=== PATIENT | male | born 1945 | race Caucasian/White ===

== ENCOUNTER 2017-01-21 17:05 | Inpatient (IN) | payer OTHER ==
[~2017-01-21] VITALS: Ht 165.1 cm; Wt 73.9 kg
[~2017-01-21 17:05] MED LIST: FEBU40TA PO; FEXO1TAB49 PO; FLM4 PO; OMEP20TA PO; PRS5 PO
[2017-01-21] MEDS ORDERED: SODIUM CHLORIDE 0.9% 1000ML 1,000 ML IV STA ×2 (18:25→20:24)
[2017-01-21 18:42] LABS: BASO % 0.1 %; BASO ABS # 0.01 K/uL (0-0.2); COMPLETE YES; EOS % 0.3 %; HEMATOCRIT 48.8 % (42-52); IG% 0.3 %; LYMPH % 7.1 %; LYMPH ABS # 1.05 K/uL (1.2-3.4); MEAN CELL VOLUME 93.8 fL (80-100); MEAN CORPUSCULAR HEMOGLOBIN 34.4 pg (25-34); MEAN CORPUSCULAR HGB CONC 36.7 g/dl (32-36); MEAN PLATELET VOLUME 9.3 fL (7.4-10.4); NEUT % 84.2 %; PLATELET COUNT 149 K/uL (130-400); WHITE BLOOD COUNT 14.73 K/uL (4.8-10.8)
[2017-01-21 18:46] LABS: URINE APPEARANCE CLEAR (CLEAR); URINE BILIRUBIN NEG (NEG); URINE COLOR YELLOW; URINE NITRITE NEG (NEG); URINE SPECIFIC GRAVITY 1.016 (1.000-1.030); UROBILINOGEN NEG (NEG); ZZUR CULT IF INDIC CLEAN CATCH NO
[2017-01-21 18:48] LABS: MANUAL MICROSCOPIC REQUIRED? NO; REVIEW REQ? NO
[2017-01-21 19:00] LABS: BUN/CREATININE RATIO 13.1 (10-20); CALCIUM 9.2 mg/dl (8.5-10.1); CREATININE 1.3 mg/dl (0.60-1.40); POTASSIUM 3.8 mmol/L (3.5-5.1)
--- NOTE | 2017-01-21 19:12 | DIAGNOSTIC IMAGING REPORT ---
CHEST ONE VIEW PORTABLE CLINICAL HISTORY: Abdominal pain. Fever. Weakness COMPARISON STUDY: Chest radiograph September 22, 2016 per FINDINGS: Lung volumes are diminished. There is no pneumothorax or pleural effusion. Cardiomediastinal silhouette is stable. There is no evidence of pulmonary edema edema. There is mild left basilar opacity. IMPRESSION: 1. Diminished lung volumes. 2. Mild left basilar opacity. Atelectasis is favored over pneumonia. Electronically signed by: Puneet Curtis M.D. 01/21/2017 7:11 PM Dictated Date/Time: 01/21/2017 7:10 PM
[2017-01-21] MEDS ORDERED: ERGO500037 PO (19:18)
--- NOTE | 2017-01-21 19:55 | DIAGNOSTIC IMAGING REPORT ---
CT OF THE ABDOMEN AND PELVIS WITHOUT CONTRAST CLINICAL HISTORY: Diffuse abdominal pain. Prior nephrectomy. Hernia. COMPARISON STUDY: CT of the abdomen and pelvis January 25, 2016. TECHNIQUE: Axial images of the abdomen and pelvis were obtained without IV contrast. Images were reviewed in the axial, sagittal, and coronal planes. FINDINGS: There is fatty infiltration of the liver. Evaluation of the abdomen and pelvis is suboptimal on this unenhanced exam. Unenhanced images of the spleen, adrenal glands are unremarkable with the exception of a 1 cm right adrenal nodule. In retrospect, a small nodule may have been present on prior exam but this has increased in size. There is no evidence for a bowel obstruction. Note is made of colonic diverticulosis. There is wall thickening with moderate pericolonic infiltration of the proximal descending colon. There is no free air or abscess. The appearance of the right nephrectomy bed is unchanged. No suspicious osseous lesions are present. No lymphadenopathy is present. A 1.1 cm lesion within the mid to lower pole the of left kidney is suboptimally assessed on this unenhanced exam but shown to represent a cyst on prior study. IMPRESSION: 1. Acute diverticulitis of the proximal descending colon. Moderate inflammation. No free air or abscess. 2. 1 cm right adrenal nodule. In retrospect, a small nodule may have been present on prior CT but this nodule has increased in size. This nodule is indeterminate. A follow-up CT of the abdomen in 6 months is recommended. 3. Status post right nephrectomy. No change in appearance of the nephrectomy bed. Electronically signed by: Puneet Curtis M.D. 01/21/2017 7:54 PM Dictated Date/Time: 01/21/2017 7:34 PM
[2017-01-21] MEDS ORDERED: METRONIDAZOLE 500MG / 100ML NSS IV STA (20:22)
[2017-01-21] MEDS ORDERED: CIPROFLOXACIN 400MG / 200ML D5W IV STA (20:22)
[2017-01-21] MEDS ORDERED: HYDROmorphone INJ 0.5 MG/0.5 ML SYR IV STA (20:24)
[2017-01-21] MEDS ORDERED: ONDANSETRON INJ 2 MG/ML 2 ML VIAL IV STA (20:24)
[2017-01-21] MEDS ORDERED: ONDANSETRON INJ 2 MG/ML 2 ML VIAL IV PRN (21:00)
[2017-01-21] MEDS ORDERED: FLUT0.15 INH (21:06)
--- NOTE | 2017-01-21 21:43 | History and Physical ---
History & Physical Date & Time of Service: Jan 21, 2017 at 21:11 Chief Complaint: Fever,Weakness Primary Care Physician: Staci Cai M.D. History of Present Illness Source: patient This is a 71 y/o male with PMHx of diverticulitis s/p partial colectomy, renal CA s/p R nephrectomy, CKD stage 3 and other problems as outlined below who presents to the ED c/o upper respiratory sxs for 6 weeks. Pt reports that for the past 6 weeks he has been fatigued with low grade fevers (T max 101*F), headaches, congestion and cough productive of clear sputum. He was seen by his PCP multiple times and has completed a course of Augmentin, Levaquin and 2 different courses of Prednisone with no resolution of his sxs. Yesterday, patient developed abdominal pain which he describes as 5/10 upper abdominal "soreness". BM have been normal. Pt has a history of diverticulitis s/p partial colectomy in 1998. Last colonoscopy from 2013 + diverticulosis throughout colon. Pt denies chest pain, SOB, wheezing, N/V, constipation, diarrhea, hematochezia, melena, or bladder issues, LE edema ,calf pain, lightheadedness/ dizziness. In the ED, vitals are stable. Pt is afebrile with leukocytosis >14k. CT abd/pelvis + acute diverticulitis of the proximal descending colon. CXR mild L basilar opacity favoring atelectasis. Pt received IVF, Cipro/Flagyl and Dilaudid in the ED. He will be admitted for further evaluation and treatment. Past Medical/Surgical History Medical Problems: (1) BPH (benign prostatic hypertrophy) Status: Chronic (2) CKD (chronic kidney disease) stage 3, GFR 30-59 ml/min Status: Chronic (3) GERD (gastroesophageal reflux disease) Status: Chronic (4) History of nephrectomy, unilateral Permanent Comment: R nephrectomy in 1999 secondary to renal CA Status: Chronic (5) Renal cell carcinoma Status: Resolved Surgical Problems: (1) History of inguinal hernia repair Permanent Comment: open repair; 2014 Status: Resolved (2) History of partial colectomy Permanent Comment: 1998 Status: Resolved Family History Cancer Heart Hypertension Social History Smoking Status: Former Smoker (quit 1969) Alcohol Use: none Drug Use: none Marital Status: Housing status: lives with family Occupational Status: retired Multi-Drug Resistant Organisms History of MDRO: No Allergies Coded Allergies: Colchicine (Unverified Adverse Reaction, Intermediate, DIARRHEA, 01/21/17) Cauliflower (Unverified Adverse Reaction, Unknown, GIVES PT GOUT, 01/21/17) Home Medications Scheduled Ergocalciferol (Vitamin D 18714 Unit), 50,000 UNIT PO WK Febuxostat (Uloric), 40 MG PO QAM Fexofenadine Hcl (Jigna Allergy), 180 MG PO QAM Finasteride (Finasteride), 5 MG PO QAM Fluticasone Propionate (Nasal) (Flonase Allergy Relief), 2 SPRAYS INH DAILY Omeprazole (Omeprazole), 20 MG PO QAM Tamsulosin HCl (Tamsulosin HCl), 0.4 MG PO QAM Review of Systems Constitutional: + chills, + fatigue, + fever, + weakness, No sweats Eyes: No worsening of vision ENT: + nasal symptoms, No hearing loss Respiratory: + cough, + sputum, No shortness of breath, No wheezing Cardiovascular: No chest pain, No claudication, No edema, No palpitations Abdomen: + pain, No GI bleeding, No constipation, No diarrhea, No nausea, No vomiting Musculoskeletal: No calf pain, No swelling Genitourinary - Male: No dysuria Neurologic: No weakness Psychiatric: No depression symptoms Endocrine: + fatigue Hematologic / Lymphatic: No abnormal bleeding/bruising Integumentary: No new/changing skin lesions Physical Exam Vital Signs Date Time Temp Pulse Resp B/P Pulse Ox O2 Delivery O2 Flow Rate FiO2 01/21/17 21:06 89 18 126/92 94 Room Air 01/21/17 20:44 94 20 151/104 94 Room Air 01/21/17 19:15 89 20 121/100 95 Room Air 01/21/17 19:02 91 01/21/17 18:39 90 22 131/100 94 Room Air 01/21/17 17:30 37.4 109 18 134/89 96 Room Air General Appearance: WD/WN, no apparent distress, + pertinent finding (Pt is laying in bed with at bedside ) Head: normocephalic, atraumatic Eyes: normal inspection ENT: hearing grossly normal Neck: supple Respiratory/Chest: chest non-tender, lungs clear, normal breath sounds, no respiratory distress Cardiovascular: regular rate, rhythm, no edema, no murmur Abdomen/GI: normal bowel sounds, soft, + tenderness (upper>lower) Back: normal inspection Extremities/Musculoskelatal: normal inspection, no calf tenderness, no pedal edema Neurologic/Psych: alert, normal mood/affect, oriented x 3 Skin: normal color, warm/dry Diagnostics Laboratory Results Results Past 24 Hours Test 01/21/17 18:35 01/21/17 19:00 Range/Units White Blood Count 14.73 4.8-10.8 K/uL Red Blood Count 5.20 4.7-6.1 M/uL Hemoglobin 17.9 14.0-18.0 g/dL Hematocrit 48.8 42-52 % Mean Corpuscular Volume 93.8 80-100 fL Mean Corpuscular Hemoglobin 34.4 25-34 pg Mean Corpuscular Hemoglobin Concent 36.7 32-36 g/dl Platelet Count 149 130-400 K/uL Mean Platelet Volume 9.3 7.4-10.4 fL Neutrophils (%) (Auto) 84.2 % Lymphocytes (%) (Auto) 7.1 % Monocytes (%) (Auto) 8.0 % Eosinophils (%) (Auto) 0.3 % Basophils (%) (Auto) 0.1 % Neutrophils # (Auto) 12.40 1.4-6.5 K/uL Lymphocytes # (Auto) 1.05 1.2-3.4 K/uL Monocytes # (Auto) 1.18 0.11-0.59 K/uL Eosinophils # (Auto) 0.05 0-0.5 K/uL Basophils # (Auto) 0.01 0-0.2 K/uL RDW Standard Deviation 44.1 36.4-46.3 fL RDW Coefficient of Variation 12.8 11.5-14.5 % Immature Granulocyte % (Auto) 0.3 % Immature Granulocyte # (Auto) 0.04 0.00-0.02 K/uL Urine Color YELLOW Urine Appearance CLEAR CLEAR Urine pH 5.0 4.5-7.5 Urine Specific [place] 1.016 1.000-1.030 Urine Protein NEG NEG Urine Glucose (UA) NEG NEG Urine Ketones NEG NEG Urine Occult Blood NEG NEG Urine Nitrite NEG NEG Urine Bilirubin NEG NEG Urine Urobilinogen NEG NEG Urine Leukocyte Esterase NEG NEG Sodium Level 135 136-145 mmol/L Potassium Level 3.8 3.5-5.1 mmol/L Chloride Level 99 98-107 mmol/L Carbon Dioxide Level 30 21-32 mmol/L Anion Gap 6.0 3-11 mmol/L Blood Urea Nitrogen 17 7-18 mg/dl Creatinine 1.30 0.60-1.40 mg/dl Est Creatinine Clear Calc Drug Dose 47.6 ml/min Estimated GFR () 62.7 Estimated GFR (Non- 54.1 BUN/Creatinine Ratio 13.1 10-20 Random Glucose 120 70-99 mg/dl Calcium Level 9.2 8.5-10.1 mg/dl Total Bilirubin 1.5 0.2-1 mg/dl Direct Bilirubin 0.3 0-0.2 mg/dl Aspartate Amino Transf (AST/SGOT) 11 15-37 U/L Alanine Aminotransferase (ALT/SGPT) 29 12-78 U/L Alkaline Phosphatase 54 45-117 U/L Total Protein 8.2 6.4-8.2 gm/dl Albumin 3.7 3.4-5.0 gm/dl Lipase 192 73-393 U/L Influenza Type A Antigen Neg for Influ A NEG Influenza Type B Antigen Neg for Influ B NEG Diagnostic Radiology CT ABD/PELVIS IMPRESSION: 1. Acute diverticulitis of the proximal descending colon. Moderate inflammation. No free air or abscess. 2. 1 cm right adrenal nodule. In retrospect, a small nodule may have been present on prior CT but this nodule has increased in size. This nodule is indeterminate. A follow-up CT of the abdomen in 6 months is recommended. 3. Status post right nephrectomy. No change in appearance of the nephrectomy bed. CXR IMPRESSION: 1. Diminished lung volumes. 2. Mild left basilar opacity. Atelectasis is favored over pneumonia. Impression Assessment and Plan ACUTE DIVERTICULITIS -admit to med/surg -pt is afebrile with leukocytosis> 14k -CT abd/pelvis + acute diverticulitis of proximal descending colon -start IVF and Cipro/Flagyl -Keep NPO -consider GI consult if sxs fail to improve -monitor PERSISTENT COUGH ongoing for 6 weeks; failed outpatient treatment -CXR mild L basilar opacity favoring atelectasis -check flu PCR and sputum cx -cont IVF and IV abx -start Robitussin PRN and cont Flonase -monitor ADRENAL NODULE -CT abd/pelvis + 1 cm adrenal nodule -recommend f/u CT within 6 months HISTORY OF RENAL CELL CA -s/p R nephrectomy in 1999 CKD STAGE 3 -creatinine at baseline -continue to monitor and avoid nephrotoxic agents when able BPH -cont Flomax and Proscar GERD -cont PPI DVT PROPHYLAXIS -subq Lovenox CODE STATUS -FULL CODE per discussion with patient upon admission DISPO Pt seen in collaboration with Dr. Valdez. Please see her addendum for further details. Thanks! ATTENDING ADDENDUM Record reviewed. Patient interviewed and examined. I agree with the assessment and plan as stated. Care coordinated with Annette Cervantes PA-C. Please refer to her documentation for patient's history. Marta Valdez, DO Hospitalist Level of Care Med/Surg Resuscitation Status FULL RESUSCITATION VTE Prophylaxis VTE Risk Assessment Done? Y/N: Yes Risk Level: Moderate Given or contraindicated: Enoxaparin (Lovenox)SQ
[2017-01-21] MEDS ORDERED: GUAIFENESIN SUGAR FREE 100 MG/5 ML UDC PO PRN (21:45)
--- NOTE | 2017-01-21 23:11 | EMERGENCY ROOM VISIT NOTE ---
History Report prepared by Shelby: Patricia Wells Under the Supervision of: Dr. Eder Moyer M.D. First contact with patient: 18:25 Chief Complaint: FEVER Stated Complaint: FEVER,WEAKNESS History of Present Illness The patient is a 71 year old male who presents to the Emergency Room with complaints of worsening illness symptoms beginning 6 weeks prior to arrival. He has been experiencing generalized weakness and fatigue. The patient notes a low grade fever, headache, cough and abdominal pain. The patient's notes that today she called [facility] and discussed the patient's symptoms and was referred to the ED. He also notes that he has one kidney and has been experiencing trouble with urination. Patient is also prone to sepsis easily. Pt denies LOC, chills, diaphoresis, visual changes, neck pain, chest pain, breathing difficulties, nausea, vomiting, back pain, melena, hematochezia, numbness, lymphadenopathy, rash, or other complaints. Source of History: patient Onset: 6 weeks CRUISE COORDINATOR Position: other (global) Quality: other (illness symptoms ) Timing: worsening Associated Symptoms: + abdominal pain, + fatigue, + fevers, + headache, + urinary symptoms (trouble urinating), + weakness Review of Systems See HPI for pertinent positives and negatives. A total of ten systems were reviewed and were otherwise negative. Past Medical & Surgical Medical Problems: (1) BPH (benign prostatic hypertrophy) (2) CKD (chronic kidney disease) stage 3, GFR 30-59 ml/min (3) Diverticulitis (4) GERD (gastroesophageal reflux disease) (5) History of nephrectomy, unilateral (6) Renal cell carcinoma Surgical Problems: (1) History of inguinal hernia repair (2) History of partial colectomy Family History Cancer Heart Hypertension Social History Smoking Status: Never Smoker Alcohol Use: none Drug Use: none Marital Status: Housing Status: lives with significant other Occupation Status: retired Current/Historical Medications Scheduled Ergocalciferol (Vitamin D 52610 Unit), 50,000 UNIT PO WK Febuxostat (Uloric), 40 MG PO QAM Fexofenadine Hcl (Jigna Allergy), 180 MG PO QAM Finasteride (Finasteride), 5 MG PO QAM Fluticasone Propionate (Nasal) (Flonase Allergy Relief), 2 SPRAYS INH DAILY Omeprazole (Omeprazole), 20 MG PO QAM Tamsulosin HCl (Tamsulosin HCl), 0.4 MG PO QAM Allergies Coded Allergies: Colchicine (Unverified Adverse Reaction, Intermediate, DIARRHEA, 01/21/17) Cauliflower (Unverified Adverse Reaction, Unknown, GIVES PT GOUT, 01/21/17) Physical Exam Vital Signs Date Time Temp Pulse Resp B/P Pulse Ox O2 Delivery O2 Flow Rate FiO2 01/21/17 22:55 93 01/21/17 22:04 88 18 130/91 94 Room Air 01/21/17 21:06 89 18 126/92 94 Room Air 01/21/17 20:44 94 20 151/104 94 Room Air 01/21/17 19:15 89 20 121/100 95 Room Air 01/21/17 19:02 91 01/21/17 18:39 90 22 131/100 94 Room Air 01/21/17 17:30 37.4 109 18 134/89 96 Room Air Physical Exam GENERAL: Awake, alert, tired appearing, in no distress HENT: Normocephalic, atraumatic. Oropharynx unremarkable. EYES: Normal conjunctiva. Sclera non-icteric. NECK: Supple. No nuchal rigidity. FROM. No JVD. RESPIRATORY: Clear to auscultation. CARDIAC: Regular rate, normal rhythm. Extremities warm and well perfused. Pulses equal. ABDOMEN: Soft, non-distended. Diffuse tenderness to palpation. No rebound or guarding. No masses. RECTAL: Deferred. MUSCULOSKELETAL: Chest examination reveals no tenderness. The back is symmetrical on inspection without obvious abnormality. There is no CVA tenderness to palpation. No joint edema. LOWER EXTREMITIES: Calves are equal size bilaterally and non-tender. No edema. No discoloration. NEURO: Normal sensorium. No sensory or motor deficits noted. SKIN: No rash or jaundice noted. Medical Decision & Procedures ER Provider Diagnostic Interpretation: X ray results as stated below per my interpretation and radiologist interpretation. Other radiology results as stated below per my review and radiologist interpretation CHEST ONE VIEW PORTABLE CLINICAL HISTORY: Abdominal pain. Fever. Weakness COMPARISON STUDY: Chest radiograph September 22, 2016 per FINDINGS: Lung volumes are diminished. There is no pneumothorax or pleural effusion. Cardiomediastinal silhouette is stable. There is no evidence of pulmonary edema edema. There is mild left basilar opacity. IMPRESSION: 1. Diminished lung volumes. 2. Mild left basilar opacity. Atelectasis is favored over pneumonia. Electronically signed by: Puneet Curtis M.D. 01/21/2017 7:11 PM Dictated Date/Time: 01/21/2017 7:[address] OF THE ABDOMEN AND PELVIS WITHOUT CONTRAST CLINICAL HISTORY: Diffuse abdominal pain. Prior nephrectomy. Hernia. COMPARISON STUDY: CT of the abdomen and pelvis January 25, 2016. TECHNIQUE: Axial images of the abdomen and pelvis were obtained without IV contrast. Images were reviewed in the axial, sagittal, and coronal planes. FINDINGS: There is fatty infiltration of the liver. Evaluation of the abdomen and pelvis is suboptimal on this unenhanced exam. Unenhanced images of the spleen, adrenal glands are unremarkable with the exception of a 1 cm right adrenal nodule. In retrospect, a small nodule may have been present on prior exam but this has increased in size. There is no evidence for a bowel obstruction. Note is made of colonic diverticulosis. There is wall thickening with moderate pericolonic infiltration of the proximal descending colon. There is no free air or abscess. The appearance of the right nephrectomy bed is unchanged. No suspicious osseous lesions are present. No lymphadenopathy is present. A 1.1 cm lesion within the mid to lower pole the of left kidney is suboptimally assessed on this unenhanced exam but shown to represent a cyst on prior study. IMPRESSION: 1. Acute diverticulitis of the proximal descending colon. Moderate inflammation. No free air or abscess. 2. 1 cm right adrenal nodule. In retrospect, a small nodule may have been present on prior CT but this nodule has increased in size. This nodule is indeterminate. A follow-up CT of the abdomen in 6 months is recommended. 3. Status post right nephrectomy. No change in appearance of the nephrectomy bed. Electronically signed by: Puneet Curtis M.D. 01/21/2017 7:54 PM Dictated Date/Time: 01/21/2017 7:34 PM Laboratory Results 01/21/17 18:35 Red Blood Count 5.20, Mean Corpuscular Volume 93.8, Mean Corpuscular Hemoglobin 34.4, Mean Corpuscular Hemoglobin Concent 36.7, Mean Platelet Volume 9.3, Neutrophils (%) (Auto) 84.2, Lymphocytes (%) (Auto) 7.1, Monocytes (%) (Auto) 8.0, Eosinophils (%) (Auto) 0.3, Basophils (%) (Auto) 0.1, Neutrophils # (Auto) 12.40, Lymphocytes # (Auto) 1.05, Monocytes # (Auto) 1.18, Eosinophils # (Auto) 0.05, Basophils # (Auto) 0.01 01/21/17 18:35 Test 01/21/17 18:35 01/21/17 19:00 White Blood Count 14.73 K/uL (4.8-10.8) Red Blood Count 5.20 M/uL (4.7-6.1) Hemoglobin 17.9 g/dL (14.0-18.0) Hematocrit 48.8 % (42-52) Mean Corpuscular Volume 93.8 fL (80-100) Mean Corpuscular Hemoglobin 34.4 pg (25-34) Mean Corpuscular Hemoglobin Concent 36.7 g/dl (32-36) Platelet Count 149 K/uL (130-400) Mean Platelet Volume 9.3 fL (7.4-10.4) Neutrophils (%) (Auto) 84.2 % Lymphocytes (%) (Auto) 7.1 % Monocytes (%) (Auto) 8.0 % Eosinophils (%) (Auto) 0.3 % Basophils (%) (Auto) 0.1 % Neutrophils # (Auto) 12.40 K/uL (1.4-6.5) Lymphocytes # (Auto) 1.05 K/uL (1.2-3.4) Monocytes # (Auto) 1.18 K/uL (0.11-0.59) Eosinophils # (Auto) 0.05 K/uL (0-0.5) Basophils # (Auto) 0.01 K/uL (0-0.2) RDW Standard Deviation 44.1 fL (36.4-46.3) RDW Coefficient of Variation 12.8 % (11.5-14.5) Immature Granulocyte % (Auto) 0.3 % Immature Granulocyte # (Auto) 0.04 K/uL (0.00-0.02) Urine Color YELLOW Urine Appearance CLEAR (CLEAR) Urine pH 5.0 (4.5-7.5) Urine Specific [place] 1.016 (1.000-1.030) Urine Protein NEG (NEG) Urine Glucose (UA) NEG (NEG) Urine Ketones NEG (NEG) Urine Occult Blood NEG (NEG) Urine Nitrite NEG (NEG) Urine Bilirubin NEG (NEG) Urine Urobilinogen NEG (NEG) Urine Leukocyte Esterase NEG (NEG) Anion Gap 6.0 mmol/L (3-11) Est Creatinine Clear Calc Drug Dose 47.6 ml/min Estimated GFR () 62.7 Estimated GFR (Non- 54.1 BUN/Creatinine Ratio 13.1 (10-20) Calcium Level 9.2 mg/dl (8.5-10.1) Total Bilirubin 1.5 mg/dl (0.2-1) Direct Bilirubin 0.3 mg/dl (0-0.2) Aspartate Amino Transf (AST/SGOT) 11 U/L (15-37) Alanine Aminotransferase (ALT/SGPT) 29 U/L (12-78) Alkaline Phosphatase 54 U/L (45-117) Total Protein 8.2 gm/dl (6.4-8.2) Albumin 3.7 gm/dl (3.4-5.0) Lipase 192 U/L (73-393) Influenza Type A Antigen Neg for Influ A (NEG) Influenza Type B Antigen Neg for Influ B (NEG) Laboratory results reviewed by me Medications Administered Medications (Trade) Dose Ordered Sig/Jorge Route Start Time Stop Time Status Last Admin Dose Admin Sodium Chloride (Nss 1000ml) 1,000 ml @ 999 mls/hr Q1H1M STAT IV 01/21/17 18:25 01/21/17 19:25 DC 01/21/17 19:03 999 MLS/HR Ciprofloxacin/ Dextrose (Cipro / D5w) 400 mg NOW STAT IV 01/21/17 20:22 01/21/17 20:23 DC 01/21/17 20:34 400 MG Metronidazole (Flagyl / Nss) 500 mg NOW STAT IV 01/21/17 20:22 01/21/17 20:23 DC 01/21/17 20:34 500 MG Ondansetron HCl (Zofran Inj) 4 mg NOW STAT IV 01/21/17 20:24 01/21/17 20:25 DC 01/21/17 20:33 4 MG Hydromorphone HCl 0.5 mg 0.5 mg NOW STAT IV 01/21/17 20:24 01/21/17 20:25 DC 01/21/17 20:34 0.5 MG Sodium Chloride (Nss 1000ml) 1,000 ml @ 125 mls/hr Q8H STAT IV 01/21/17 20:24 01/22/17 04:23 01/21/17 20:34 125 MLS/HR ED Course 1824: Sodium Chloride 1,000 ml @ 999 mls/hr IV. 1904: The patient was evaluated in room C3. A complete history and physical exam was performed. 1906: Getting lab work from [facility] from Sunday visit. 2021: Flagyl / Nss 500 mg IV, Cipro/ D5W 400 mg IV, Sodium Chloride 1,000 ml @ 125 mls/hr IV, Dilaudid Inj 0.5 mg IV, Zofran Inj 4 mg IV. 2025: I discussed the patient's test results with the patient and his family. 2028: Discussed the patient's case with Dr. José Miguel Bahena. The patient will be evaluated for further treatment and disposition. Medical Decision Triage Nursing notes reviewed. The patient's presentation and history were concerning for fevers, weakness, and abdominal pain. Etiologies such as pneumonia, viral syndrome, diverticulitis, appendicitis, obstruction, inflammatory bowel disease, renal colic, PUD, biliary pathology, pancreatitis, mesenteric ischemia, aortic pathology, infections, genitourinary, UTI, perforated viscus, as well as others were entertained. The patient was evaluated. He was uncomfortable. He was hydrated. He was given nausea and pain medicine as above. He was feeling better. The patient had an increased white blood cell count and mild elevation of his bilirubin function. His chemistry panel, LFTs, urinalysis and flu testing were negative otherwise. CT imaging was concerning for diverticulitis. Chest x-ray was unremarkable. The patient was given Cipro and Flagyl. I discussed with him treatment options. Given the scenario additional treatment in the hospital was felt to be most appropriate. Consultation was made with internal medicine. The chart was completed utilizing [facility] voice recognition software. Grammatical errors, random word insertions, pronoun errors, and incomplete sentences are an occasional consequence of this system due to software limitations, ambient noise, and hardware issues. Any formal questions or concerns about the content, text, or information contained within the body of this dictation should be directly addressed to the physician for clarification. Consults Time Called: 2026 Consulting Physician: Dr. José Miguel Bahena Returned Call: 2028 Discussed the patient's case. The patient will be evaluated for further treatment and disposition. Impression Primary Impression: Diverticulitis Additional Impression: Fever Scribe Attestation The scribe's documentation has been prepared under my direction and personally reviewed by me in its entirety. I confirm that the note above accurately reflects all work, treatment, procedures, and medical decision making performed by me. Departure Information Dispostion Being Evaluated By Hospitalist Referrals Staci Cai M.D. (PCP) Problem Qualifiers
[2017-01-21 23:45] VITALS: BP 143/97; PULSE 80; TEMP 36.2; Ht 165.1 cm; Wt 73.9 kg
[2017-01-21 23:54] VITALS: BP 143/97; PULSE 80; TEMP 36.7; O2SAT 94
[2017-01-21] MEDS ORDERED: D5W AND NSS 1,000 ML IV SCH (23:59)
[2017-01-22] MEDS: ACETAMINOPHEN 325 MG TAB PO PRN ×3 (00:25→13:42)
[2017-01-22] MEDS ORDERED: HYDROmorphone INJ 0.5 MG/0.5 ML SYR IV ONE (00:27)
[2017-01-22] MEDS ORDERED: HYDROmorphone INJ 0.5 MG/0.5 ML SYR IV PRN (00:30)
[2017-01-22] MEDS: METRONIDAZOLE / NSS 500 MG in PREMIXED NSS 100 ML IV SCH ×3 (03:34→19:29)
[2017-01-22 05:14] LABS: INFLUENZA A PCR Neg for Influ A (NEG); INFLUENZA B PCR Neg for Influ B (NEG)
[2017-01-22 07:55] LABS: INR 1.1 (0.9-1.1); PROTHROMBIN TIME (PATIENT) 11.4 SECONDS (9.0-12.0)
[2017-01-22 07:57] LABS: HEMATOCRIT 40.1 % (42-52); MEAN CELL VOLUME 96.6 fL (80-100); MEAN CORPUSCULAR HEMOGLOBIN 34.7 pg (25-34); MEAN CORPUSCULAR HGB CONC 35.9 g/dl (32-36); MEAN PLATELET VOLUME 9.2 fL (7.4-10.4); PLATELET COUNT 109 K/uL (130-400); RED BLOOD COUNT 4.15 M/uL (4.7-6.1); WHITE BLOOD COUNT 9.03 K/uL (4.8-10.8)
[2017-01-22 08:04] VITALS: BP 120/80; PULSE 60; TEMP 36.5; O2SAT 93
[2017-01-22 08:22] LABS: BUN/CREATININE RATIO 13.4 (10-20); CALCIUM 8.4 mg/dl (8.5-10.1); CREATININE 1.1 mg/dl (0.60-1.40); POTASSIUM 4.1 mmol/L (3.5-5.1)
[2017-01-22] MEDS: ULORIC~ORDER AWAITING ACTION SCH ×2 (08:58)
[2017-01-22] MEDS: CIPROFLOXACIN / D5W 400 MG in PREMIXED IN D5W 200 ML IV SCH ×2 (08:59→21:08)
[2017-01-22] MEDS: FINASTERIDE 5 MG TAB PO SCH (09:00)
[2017-01-22] MEDS: PANTOprazole SOD 40 MG TAB PO SCH (09:00)
[2017-01-22] MEDS: TAMSULOSIN HCL 0.4 MG CAP PO SCH (09:00)
[2017-01-22] MEDS: ENOXAPARIN 40 MG/0.4 ML SYR SQ SCH (09:08)
[2017-01-22 09:32] VITALS: O2SAT 93
[2017-01-22] MEDS: FEBUXOSTAT 40 MG TAB PO SCH (15:23)
[2017-01-22] MEDS ORDERED: MoRPHine SULFATE 2 MG/ML CARP IV PRN (15:30)
--- NOTE | 2017-01-22 15:30 | Progress Note ---
Internal Med Progress Note Date of Service: Jan 22, 2017. Provider Documentation: SUBJECTIVE: Patient is doing much better today Abdominal pain has improved, No nausea, vomiting, diarrhea, fever, chills OBJECTIVE: Vital Signs-as noted below Exam: General-AAOX3, no distress Neck-Supple Lungs-AEBE, no wheezing, rhonchi Heart-S1, S2 normal, No murmurs Abdomen-Soft, mild tenderness in left upper, mid quadrants and epigastric region , no rigidity , guarding, BS present Extremities- No edema Lab data as noted below. ASSESSMENT & PLAN: ACUTE DIVERTICULITIS : Clinically improved Pt is afebrile with leukocytosis > 14k , now normal -CT abd/pelvis + acute diverticulitis of proximal descending colon - IVF and Cipro/Flagyl (Day 2) - NPO ---> Advance to clear liquid - Pain mx- Not using much pain meds- tylenol PRN PERSISTENT COUGH Ongoing for 6 weeks. Patient has been treated with 2 courses of antibiotics, steroids for this and symptoms are improving. -CXR mild L basilar opacity favoring atelectasis, likely old as symptoms are already resolving with residual cough -Flu negative -Robitussin PRN and cont Flonase COINCIDENTAL FINDING OF ADRENAL NODULE -CT abd/pelvis + 1 cm adrenal nodule-- slightly increased from prior imaging -recommend f/u CT within 6 months . Discussed with patient and aware about it. Follows up with Dr Boyd who is aware about this too HISTORY OF RENAL CELL CA -s/p R nephrectomy in 1999 CKD STAGE 3 -creatinine at baseline -continue to monitor and avoid nephrotoxic agents when able BPH -cont Flomax and Proscar GERD -cont PPI DVT PROPHYLAXIS -subq Lovenox CODE STATUS -FULL CODE per discussion with patient upon admission DISPO Expected discharge home when stable Vital Signs: Date Time Temp Pulse Resp B/P Pulse Ox O2 Delivery O2 Flow Rate FiO2 01/22/17 09:32 93 Room Air 01/22/17 08:04 36.5 60 17 120/80 93 Room Air 01/22/17 07:45 Room Air 01/21/17 23:54 36.7 80 18 143/97 94 Room Air 01/21/17 23:45 Room Air 01/21/17 23:45 36.2 80 18 143/97 Room Air 01/21/17 23:16 84 20 113/80 94 Room Air 01/21/17 22:55 93 01/21/17 22:04 88 18 130/91 94 Room Air 01/21/17 21:06 89 18 126/92 94 Room Air 01/21/17 20:44 94 20 151/104 94 Room Air 01/21/17 19:15 89 20 121/100 95 Room Air 01/21/17 19:02 91 01/21/17 18:39 90 22 131/100 94 Room Air 01/21/17 17:30 37.4 109 18 134/89 96 Room Air Lab Results: Results Past 24 Hours Test 01/21/17 18:35 01/21/17 19:00 01/22/17 00:00 01/22/17 07:20 Range/Units White Blood Count 14.73 9.03 4.8-10.8 K/uL Red Blood Count 5.20 4.15 4.7-6.1 M/uL Hemoglobin 17.9 14.4 14.0-18.0 g/dL Hematocrit 48.8 40.1 42-52 % Mean Corpuscular Volume 93.8 96.6 80-100 fL Mean Corpuscular Hemoglobin 34.4 34.7 25-34 pg Mean Corpuscular Hemoglobin Concent 36.7 35.9 32-36 g/dl Platelet Count 149 109 130-400 K/uL Mean Platelet Volume 9.3 9.2 7.4-10.4 fL Neutrophils (%) (Auto) 84.2 % Lymphocytes (%) (Auto) 7.1 % Monocytes (%) (Auto) 8.0 % Eosinophils (%) (Auto) 0.3 % Basophils (%) (Auto) 0.1 % Neutrophils # (Auto) 12.40 1.4-6.5 K/uL Lymphocytes # (Auto) 1.05 1.2-3.4 K/uL Monocytes # (Auto) 1.18 0.11-0.59 K/uL Eosinophils # (Auto) 0.05 0-0.5 K/uL Basophils # (Auto) 0.01 0-0.2 K/uL RDW Standard Deviation 44.1 45.8 36.4-46.3 fL RDW Coefficient of Variation 12.8 13.0 11.5-14.5 % Immature Granulocyte % (Auto) 0.3 % Immature Granulocyte # (Auto) 0.04 0.00-0.02 K/uL Urine Color YELLOW Urine Appearance CLEAR CLEAR Urine pH 5.0 4.5-7.5 Urine Specific [place] 1.016 1.000-1.030 Urine Protein NEG NEG Urine Glucose (UA) NEG NEG Urine Ketones NEG NEG Urine Occult Blood NEG NEG Urine Nitrite NEG NEG Urine Bilirubin NEG NEG Urine Urobilinogen NEG NEG Urine Leukocyte Esterase NEG NEG Sodium Level 135 137 136-145 mmol/L Potassium Level 3.8 4.1 3.5-5.1 mmol/L Chloride Level 99 103 98-107 mmol/L Carbon Dioxide Level 30 28 21-32 mmol/L Anion Gap 6.0 6.0 3-11 mmol/L Blood Urea Nitrogen 17 15 7-18 mg/dl Creatinine 1.30 1.10 0.60-1.40 mg/dl Est Creatinine Clear Calc Drug Dose 47.6 56.2 ml/min Estimated GFR () 62.7 76.8 Estimated GFR (Non- 54.1 66.2 BUN/Creatinine Ratio 13.1 13.4 10-20 Random Glucose 120 147 70-99 mg/dl Calcium Level 9.2 8.4 8.5-10.1 mg/dl Total Bilirubin 1.5 0.2-1 mg/dl Direct Bilirubin 0.3 0-0.2 mg/dl Aspartate Amino Transf (AST/SGOT) 11 15-37 U/L Alanine Aminotransferase (ALT/SGPT) 29 12-78 U/L Alkaline Phosphatase 54 45-117 U/L Total Protein 8.2 6.4-8.2 gm/dl Albumin 3.7 3.4-5.0 gm/dl Lipase 192 73-393 U/L Influenza Type A Antigen Neg for Influ A NEG Influenza Type B Antigen Neg for Influ B NEG Influenza Type A (RT-PCR) Neg for Influ A NEG Influenza Type B (RT-PCR) Neg for Influ B NEG Prothrombin Time 11.4 9.0-12.0 SECONDS Prothromb Time International Ratio 1.1 0.9-1.1
[2017-01-22 15:50] VITALS: BP 114/76; PULSE 73; TEMP 36.9; O2SAT 94
[2017-01-22 23:02] VITALS: BP 147/91; PULSE 51; TEMP 36.6; O2SAT 94
[2017-01-23] MEDS: ACETAMINOPHEN 325 MG TAB PO PRN ×2 (00:15→09:37)
[2017-01-23] MEDS: METRONIDAZOLE / NSS 500 MG in PREMIXED NSS 100 ML IV SCH ×3 (03:53→19:48)
[2017-01-23 07:43] VITALS: BP 104/59; PULSE 58; TEMP 36.9; O2SAT 94
[2017-01-23 08:25] LABS: HEMATOCRIT 38.6 % (42-52); MEAN CELL VOLUME 94.4 fL (80-100); MEAN CORPUSCULAR HEMOGLOBIN 33.7 pg (25-34); MEAN CORPUSCULAR HGB CONC 35.8 g/dl (32-36); MEAN PLATELET VOLUME 9.4 fL (7.4-10.4); PLATELET COUNT 128 K/uL (130-400); RED BLOOD COUNT 4.09 M/uL (4.7-6.1); WHITE BLOOD COUNT 6.68 K/uL (4.8-10.8)
[2017-01-23 08:49] LABS: BUN/CREATININE RATIO 10.3 (10-20); CALCIUM 8.6 mg/dl (8.5-10.1); CREATININE 1.1 mg/dl (0.60-1.40); POTASSIUM 4.1 mmol/L (3.5-5.1)
[2017-01-23] MEDS: FINASTERIDE 5 MG TAB PO SCH (09:28)
[2017-01-23] MEDS: PANTOprazole SOD 40 MG TAB PO SCH (09:28)
[2017-01-23] MEDS: FEBUXOSTAT 40 MG TAB PO SCH (09:28)
[2017-01-23] MEDS: TAMSULOSIN HCL 0.4 MG CAP PO SCH (09:28)
[2017-01-23] MEDS: CIPROFLOXACIN / D5W 400 MG in PREMIXED IN D5W 200 ML IV SCH ×2 (09:28→21:24)
[2017-01-23] MEDS: ENOXAPARIN 40 MG/0.4 ML SYR SQ SCH (09:29)
[2017-01-23] MEDS ORDERED: MAGNESIUM HYDROXIDE SUSP 30 ML UDC PO PRN (14:00)
[2017-01-23] MEDS ORDERED: DOCUSATE SODIUM/SENNA 50/8.6MG TAB PO ONE (14:00)
--- NOTE | 2017-01-23 14:18 | Progress Note ---
Medicine Progress Note Date & Time of Visit: Jan 23, 2017 at 13:49. Subjective patient seen sitting up in chair comfortable LLQ is improving no BM yet, (+) flatus no fever/chills no other symptoms Objective Last 8 Hrs Date Time Temp Pulse Resp B/P Pulse Ox O2 Delivery O2 Flow Rate FiO2 01/23/17 08:10 Room Air 01/23/17 07:43 36.9 58 16 104/59 94 Room Air Physical Exam: General- oriented x 3, not in distress Head- atraumatic Eyes- anicteric ENT- oropharynx clear Neck- supple, no JVD, no adenopathy Lungs- clear breath sounds bilaterally Heart- regular rhythm; no murmur, no gallops Abdomen- normal bowel sounds, soft, mild LUQ pain Extremities- no pretibial edema Neuro- alert, oriented x 3; no gross focal deficits Skin- warm & dry Laboratory Results: Last 24 Hours Test 01/23/17 07:45 White Blood Count 6.68 K/uL Red Blood Count 4.09 M/uL Hemoglobin 13.8 g/dL Hematocrit 38.6 % Mean Corpuscular Volume 94.4 fL Mean Corpuscular Hemoglobin 33.7 pg Mean Corpuscular Hemoglobin Concent 35.8 g/dl RDW Standard Deviation 43.2 fL RDW Coefficient of Variation 12.6 % Platelet Count 128 K/uL Mean Platelet Volume 9.4 fL Sodium Level 138 mmol/L Potassium Level 4.1 mmol/L Chloride Level 105 mmol/L Carbon Dioxide Level 25 mmol/L Anion Gap 8.0 mmol/L Blood Urea Nitrogen 11 mg/dl Creatinine 1.10 mg/dl Est Creatinine Clear Calc Drug Dose 56.2 ml/min Estimated GFR () 76.8 Estimated GFR (Non- 66.2 BUN/Creatinine Ratio 10.3 Random Glucose 116 mg/dl Calcium Level 8.6 mg/dl Date/Time Source Procedure Growth Status 01/23/17 11:22 Sputum Expectorated Sputum Gram Stain - Final Resulted 01/23/17 11:22 Sputum Expectorated Sputum Sputum Culture Pending Resulted Assessment & Plan ACUTE DIVERTICULITIS -CT abd/pelvis + acute diverticulitis of proximal descending colon - IVF and Cipro/Flagyl (Day 3) improving advance diet today Senokot S and Milk of Mg ordered PERSISTENT COUGH Ongoing for 6 weeks. Patient has been treated with 2 courses of antibiotics, steroids for this and symptoms are improving. -CXR mild L basilar opacity favoring atelectasis, likely old as symptoms are already resolving with residual cough -Flu negative -Robitussin PRN and cont Flonase COINCIDENTAL FINDING OF ADRENAL NODULE - CT abd/pelvis + 1 cm adrenal nodule-- slightly increased from prior imaging - recommend f/u CT within 6 months - will order Urology consult HISTORY OF RENAL CELL CA -s/p R nephrectomy in 1999 CKD STAGE 3 -creatinine at baseline BPH -cont Flomax and Proscar GERD -cont PPI DVT PROPHYLAXIS -subq Lovenox CODE STATUS -FULL CODE per discussion with patient upon admission DISPO Expected discharge home when stable Current Inpatient Medications: Current Inpatient Medications Medications (Trade) Dose Ordered Sig/Jorge Route Start Time Stop Time Status Last Admin Dose Admin Enoxaparin Sodium (Lovenox Inj) 40 mg Q24H SQ 01/22/17 09:00 02/21/17 08:59 01/23/17 09:29 40 MG Acetaminophen (Tylenol Tab) 650 mg Q4H PRN PO 01/21/17 21:00 02/20/17 20:59 01/23/17 09:37 650 MG Ondansetron HCl 4 mg 4 mg Q6H PRN IV 01/21/17 21:00 02/20/17 20:59 Ciprofloxacin/ Dextrose 400 mg/ Prmx 200 ml @ 100 mls/hr Q12 IV 01/22/17 09:00 02/01/17 08:59 01/23/17 09:28 100 MLS/HR Metronidazole/Prmx (Flagyl / Nss/ Premixed Nss) 100 ml @ 100 mls/hr Q8H IV 01/22/17 04:00 02/01/17 03:59 01/23/17 11:33 100 MLS/HR Finasteride (Proscar Tab) 5 mg QAM PO 01/22/17 09:00 02/21/17 08:59 01/23/17 09:28 5 MG Tamsulosin HCl (Flomax Cap) 0.4 mg QAM PO 01/22/17 09:00 02/21/17 08:59 01/23/17 09:28 0.4 MG Pantoprazole Sodium (Protonix Tab) 40 mg QAM PO 01/22/17 09:00 02/21/17 08:59 01/23/17 09:28 40 MG Guaifenesin (Robitussin Sugar Free Syrup) 100 mg Q6H PRN PO 01/21/17 21:45 02/20/17 21:44 Febuxostat (Uloric) 40 mg DAILY PO 01/22/17 14:00 02/21/17 13:59 01/23/17 09:28 40 MG Morphine Sulfate (MoRPHine SULFATE INJ) 2 mg Q6H PRN IV 01/22/17 15:30 02/05/17 15:29 01/22/17 16:08 2 MG
[2017-01-23 14:59] VITALS: BP 122/83; PULSE 68; TEMP 36.4; O2SAT 93
[2017-01-23 22:50] VITALS: BP 143/90; PULSE 67; TEMP 36.9; O2SAT 94
[2017-01-24] MEDS: METRONIDAZOLE / NSS 500 MG in PREMIXED NSS 100 ML IV SCH ×3 (04:09→19:37)
--- NOTE | 2017-01-24 08:06 | Urology Consultation ---
History General Date of Service: Jan 24, 2017. Chief Complaint: adrenal nodule Primary Care Physician: Staci Cai M.D. Pt seen a urologist before?: Yes (Dr. Boyd) If yes, why?: RCC History of Present Illness 71 yo male admitted for diverticulitis. consulted for incidental finding of 1cm right adrenal nodule in CT scan. The pt has a hx of RCC for which he underwent nephrectomy in 1999. Excision of recurrence at site in [address] Boyd. The pt has remained ANNY otherwise. No hx of requiring chemo. He denies any dysuria or hematuria today. Continues to have some LLQ abdominal pain. Denies n/v. HPI - UTI History of Surgery: positive Imaging Imaging: CT Laboratory Labs were reviewed and are within normal limits unless listed below. Labs are available in the chart and at [facility] Problem List Medical Problems: (1) Dehydration Status: Acute (2) Fever Status: Acute Past History BPH, diverticulitis, diverticulosis, GERD, other (RCC with recurrence in 2013, CKD, inguinal hernia) Past Surgical History: bowel resection, nephrectomy (right side 1999; excision of recurrence in 2014), other (inguinal hernia repair) Family History Cancer Heart Hypertension Social History Hx Tobacco Use In Past Year?: No Smoking: quit greater than 1 year (1969), no current use Alcohol: never Drug use: none Marital status: Housing status: lives with family Occupation status: retired History of MDRO No Allergies Coded Allergies: Colchicine (Unverified Adverse Reaction, Intermediate, DIARRHEA, 01/21/17) Cauliflower (Unverified Adverse Reaction, Unknown, GIVES PT GOUT, 01/21/17) Medications Home Medications: Home Meds and Scripts Medications Dose Route/Sig Max Daily Dose Days Date Category Flonase Allergy Relief (Fluticasone Propionate (Nasal)) 50 Mcg/Act Spr 2 Sprays INH DAILY 01/21/17 Reported Vitamin D 75657 Unit (Ergocalciferol) 50,000 Unit Cap 50,000 Unit PO WK 01/21/17 Reported Tamsulosin HCl 0.4 Mg Cap 0.4 Mg PO QAM 09/22/16 Reported Finasteride 5 Mg Tab 5 Mg PO QAM 09/22/16 Reported Omeprazole 20 Mg Tab 20 Mg PO QAM 09/22/16 Reported Uloric (Febuxostat) 40 Mg Tab 40 Mg PO QAM 08/10/14 Reported Jigna Allergy (Fexofenadine Hcl) 180 Mg Tab 180 Mg PO QAM 06/24/14 Reported Inpatient Medications: Current Inpatient Medications Medications (Trade) Dose Ordered Sig/Jorge Route Start Time Stop Time Status Last Admin Dose Admin Enoxaparin Sodium (Lovenox Inj) 40 mg Q24H SQ 01/22/17 09:00 02/21/17 08:59 01/23/17 09:29 40 MG Acetaminophen (Tylenol Tab) 650 mg Q4H PRN PO 01/21/17 21:00 02/20/17 20:59 01/23/17 09:37 650 MG Ondansetron HCl 4 mg 4 mg Q6H PRN IV 01/21/17 21:00 02/20/17 20:59 Ciprofloxacin/ Dextrose 400 mg/ Prmx 200 ml @ 100 mls/hr Q12 IV 01/22/17 09:00 02/01/17 08:59 01/23/17 21:24 100 MLS/HR Metronidazole/Prmx (Flagyl / Nss/ Premixed Nss) 100 ml @ 100 mls/hr Q8H IV 01/22/17 04:00 02/01/17 03:59 01/24/17 04:09 100 MLS/HR Finasteride (Proscar Tab) 5 mg QAM PO 01/22/17 09:00 02/21/17 08:59 01/23/17 09:28 5 MG Tamsulosin HCl (Flomax Cap) 0.4 mg QAM PO 01/22/17 09:00 02/21/17 08:59 01/23/17 09:28 0.4 MG Pantoprazole Sodium (Protonix Tab) 40 mg QAM PO 01/22/17 09:00 02/21/17 08:59 01/23/17 09:28 40 MG Guaifenesin (Robitussin Sugar Free Syrup) 100 mg Q6H PRN PO 01/21/17 21:45 02/20/17 21:44 Febuxostat (Uloric) 40 mg DAILY PO 01/22/17 14:00 02/21/17 13:59 01/23/17 09:28 40 MG Morphine Sulfate (MoRPHine SULFATE INJ) 2 mg Q6H PRN IV 01/22/17 15:30 02/05/17 15:29 01/22/17 16:08 2 MG Senna/Docusate Sodium (Senokot S Tab) 1 tab QAM PO 01/24/17 09:00 02/23/17 08:59 Magnesium Hydroxide (Milk Of Magnesia Susp) 30 ml Q6H PRN PO 01/23/17 14:00 02/22/17 13:59 Review of Systems Review of Systems Constitutional: No chills, No fever Eyes: No double vision Neurological: No dizzy Endocrine: No excessive thirst Gastrointestinal: + abdominal pain (LLQ), + see HPI, No nausea, No vomiting Cardiovascular: No chest pain Respiratory: No shortness of breath Skin: No rash Musculoskeletal: No back pain Male : No blood in urine, No painful urination Physical Exam Vital Signs: Vital Signs Past 12 Hours Date Time Temp Pulse Resp B/P Pulse Ox O2 Delivery O2 Flow Rate FiO2 01/23/17 23:30 Room Air 01/23/17 22:50 36.9 67 18 143/90 94 Room Air Physical Exam: General Appearance: no apparent distress Eyes: bilateral eyes normal inspection ENT: hearing grossly normal Neck: no JVD Respiratory/Chest: no respiratory distress, no accessory muscle use Cardiovascular: no JVD Extremities: normal inspection Neurologic/Psychiatric: alert, normal mood/affect, oriented x 3 Skin: normal color Assessment & Plan Assessment & Plan A/P: 1cm right adrenal nodule; hx of RCC excision of recurrence in [address] reviewed with Dr. Boyd. Dx of exclusion includes recurrence of RCC. Would recommend MRI in 6 months to assess for change in growth of the mass. If growing , will need to consider adrenalectomy. The pt is scheduled to f/u with Dr. Boyd on February 12. Will keep this outpatient f/u appt for further discussion. No further management at this time. Recall PRN issues. Thanks for allowing us to participate in this pt's care.
[2017-01-24 08:15] VITALS: BP 130/80; PULSE 56; TEMP 36.9; O2SAT 94
[2017-01-24 08:30] VITALS: O2SAT 94
[2017-01-24] MEDS: TAMSULOSIN HCL 0.4 MG CAP PO SCH (08:52)
[2017-01-24] MEDS: FINASTERIDE 5 MG TAB PO SCH (08:52)
[2017-01-24] MEDS: FEBUXOSTAT 40 MG TAB PO SCH (08:53)
[2017-01-24] MEDS: PANTOprazole SOD 40 MG TAB PO SCH (08:53)
[2017-01-24] MEDS: ENOXAPARIN 40 MG/0.4 ML SYR SQ SCH (08:54)
[2017-01-24] MEDS ORDERED: DOCUSATE SODIUM/SENNA 50/8.6MG TAB PO SCH (09:00)
[2017-01-24] MEDS: CIPROFLOXACIN / D5W 400 MG in PREMIXED IN D5W 200 ML IV SCH ×2 (09:01→20:52)
[2017-01-24] MEDS: ACETAMINOPHEN 325 MG TAB PO PRN (13:08)
[2017-01-24 15:19] VITALS: BP 125/79; PULSE 52; TEMP 37; O2SAT 90
--- NOTE | 2017-01-24 17:01 | Progress Note ---
Medicine Progress Note Date & Time of Visit: Jan 24, 2017 at 16:54. Subjective seen resting in bed, comfortable reports moderate LLQ after eating no nausea (+) BM, 2 loose stools, non bloody otherwise, denies other symptoms Objective Last 8 Hrs Date Time Temp Pulse Resp B/P Pulse Ox O2 Delivery O2 Flow Rate FiO2 01/24/17 15:19 37.0 52 16 125/79 90 Room Air Physical Exam: General- oriented x 3, not in distress Neck- no JVD Lungs- clear breath sounds bilaterally Heart- regular rhythm; no murmur, no gallops Abdomen- normal bowel sounds,non distended, soft, non tender Extremities- no pretibial edema Neuro- alert, oriented x 3; no gross focal deficits Skin- warm & dry Assessment & Plan ACUTE DIVERTICULITIS -CT abd/pelvis + acute diverticulitis of proximal descending colon - IVF and Cipro/Flagyl (Day 4) - (+) post prandial LLQ pain will repeat CT abdomen continue low fiber diet 2 LOOSE BM's from senokot? observe for now PERSISTENT COUGH Ongoing for 6 weeks. Patient has been treated with 2 courses of antibiotics, steroids for this and symptoms are improving. -CXR mild L basilar opacity favoring atelectasis, likely old as symptoms are already resolving with residual cough -Flu negative -Robitussin PRN and cont Flonase COINCIDENTAL FINDING OF ADRENAL NODULE - CT abd/pelvis + 1 cm adrenal nodule-- slightly increased from prior imaging - recommend f/u MRI within 6 months - appreciate Urology consult HISTORY OF RENAL CELL CA -s/p R nephrectomy in 1999 CKD STAGE 3 -creatinine at baseline BPH -cont Flomax and Proscar GERD -cont PPI DVT PROPHYLAXIS -subq Lovenox CODE STATUS -FULL CODE per discussion with patient upon admission DISPO Expected discharge home when stable Current Inpatient Medications: Current Inpatient Medications Medications (Trade) Dose Ordered Sig/Jorge Route Start Time Stop Time Status Last Admin Dose Admin Enoxaparin Sodium (Lovenox Inj) 40 mg Q24H SQ 01/22/17 09:00 02/21/17 08:59 01/24/17 08:54 40 MG Acetaminophen (Tylenol Tab) 650 mg Q4H PRN PO 01/21/17 21:00 02/20/17 20:59 01/24/17 13:08 650 MG Ondansetron HCl 4 mg 4 mg Q6H PRN IV 01/21/17 21:00 02/20/17 20:59 Ciprofloxacin/ Dextrose 400 mg/ Prmx 200 ml @ 100 mls/hr Q12 IV 01/22/17 09:00 02/01/17 08:59 01/24/17 09:01 100 MLS/HR Metronidazole/Prmx (Flagyl / Nss/ Premixed Nss) 100 ml @ 100 mls/hr Q8H IV 01/22/17 04:00 02/01/17 03:59 01/24/17 11:42 100 MLS/HR Finasteride (Proscar Tab) 5 mg QAM PO 01/22/17 09:00 02/21/17 08:59 01/24/17 08:52 5 MG Tamsulosin HCl (Flomax Cap) 0.4 mg QAM PO 01/22/17 09:00 02/21/17 08:59 01/24/17 08:52 0.4 MG Pantoprazole Sodium (Protonix Tab) 40 mg QAM PO 01/22/17 09:00 02/21/17 08:59 01/24/17 08:53 40 MG Guaifenesin (Robitussin Sugar Free Syrup) 100 mg Q6H PRN PO 01/21/17 21:45 02/20/17 21:44 Febuxostat (Uloric) 40 mg DAILY PO 01/22/17 14:00 02/21/17 13:59 01/24/17 08:53 40 MG Morphine Sulfate (MoRPHine SULFATE INJ) 2 mg Q6H PRN IV 01/22/17 15:30 02/05/17 15:29 01/22/17 16:08 2 MG Senna/Docusate Sodium (Senokot S Tab) 1 tab QAM PO 01/24/17 09:00 02/23/17 08:59 Magnesium Hydroxide (Milk Of Magnesia Susp) 30 ml Q6H PRN PO 01/23/17 14:00 02/22/17 13:59 Lactobacillus Acidophilus (Floranex Tab) 4 tab TIDM PO 01/24/17 17:45 02/23/17 17:44 UNV
[2017-01-24] MEDS ORDERED: DOCUSATE SODIUM/SENNA 50/8.6MG TAB PO PRN (17:30)
--- NOTE | 2017-01-24 17:54 | DIAGNOSTIC IMAGING REPORT ---
CT OF THE ABDOMEN AND PELVIS WITHOUT CONTRAST CLINICAL HISTORY: Follow-up diverticulitis. COMPARISON STUDY: CT of the abdomen and pelvis January 21, 2017. TECHNIQUE: Axial images of the abdomen and pelvis were obtained without IV contrast. Images were reviewed in the axial, sagittal, and coronal planes. FINDINGS: There is no pneumatosis, free air or portal venous gas. Unenhanced images of liver, spleen, left adrenal gland and pancreas are unremarkable with exception of a few pancreatic proximal calcifications. There is no peripancreatic infiltration. The patient is status post right] knee. No abnormality within the nephrectomy bed is identified on this unenhanced exam. A 1 cm right adrenal nodule is again noted. There is left colon diverticulosis. Inflammation adjacent to the proximal descending colon has moderately improved since exam of January 21, 2017. There is mild residual infiltration. There is no free air or abscess. No suspicious osseous lesions are present. There is no evidence for a bowel obstruction. Gas within the subcutaneous tissues of the anterior abdominal wall is likely due to injections. IMPRESSION: Moderate improvement in acute diverticulitis of the proximal descending colon. Mild residual inflammation. No free air or abscess. Electronically signed by: Puneet Curtis M.D. 01/24/2017 5:53 PM Dictated Date/Time: 01/24/2017 5:48 PM
[2017-01-24] MEDS: LACTOBACILLUS ACIDOPHILUS (FLORANEX) TAB PO SCH (19:06)
[2017-01-24 19:26] VITALS: O2SAT 95
[2017-01-24 19:30] VITALS: PULSE 62
[2017-01-24 22:50] VITALS: BP 154/105; PULSE 57; TEMP 36.4; O2SAT 95
[2017-01-25 01:14] VITALS: BP 119/76
[2017-01-25] MEDS: METRONIDAZOLE / NSS 500 MG in PREMIXED NSS 100 ML IV SCH ×3 (03:41→20:17)
[2017-01-25 06:32] LABS: BUN/CREATININE RATIO 10.8 (10-20); CALCIUM 8.4 mg/dl (8.5-10.1); CREATININE 1.3 mg/dl (0.60-1.40); POTASSIUM 3.9 mmol/L (3.5-5.1)
[2017-01-25 06:45] LABS: BASO % 0.2 %; BASO ABS # 0.01 K/uL (0-0.2); COMPLETE YES; EOS % 1.2 %; HEMATOCRIT 38.8 % (42-52); IG% 0.2 %; LYMPH % 19.9 %; LYMPH ABS # 0.84 K/uL (1.2-3.4); MEAN CORPUSCULAR HEMOGLOBIN 33.9 pg (25-34); MEAN CORPUSCULAR HGB CONC 35.3 g/dl (32-36); MEAN PLATELET VOLUME 9.6 fL (7.4-10.4); MONO % 8.1 %; NEUT % 70.4 %; PLATELET COUNT 133 K/uL (130-400); RED BLOOD COUNT 4.04 M/uL (4.7-6.1); WHITE BLOOD COUNT 4.22 K/uL (4.8-10.8)
[2017-01-25 06:55] VITALS: BP 129/78; PULSE 45; TEMP 37.1; O2SAT 94
[2017-01-25] MEDS: LACTOBACILLUS ACIDOPHILUS (FLORANEX) TAB PO SCH ×3 (08:52→17:31)
[2017-01-25] MEDS: CIPROFLOXACIN / D5W 400 MG in PREMIXED IN D5W 200 ML IV SCH ×2 (08:53→21:26)
[2017-01-25] MEDS: TAMSULOSIN HCL 0.4 MG CAP PO SCH (08:53)
[2017-01-25] MEDS: FINASTERIDE 5 MG TAB PO SCH (08:53)
[2017-01-25] MEDS: PANTOprazole SOD 40 MG TAB PO SCH (08:53)
[2017-01-25] MEDS: FEBUXOSTAT 40 MG TAB PO SCH (08:54)
[2017-01-25] MEDS: ENOXAPARIN 40 MG/0.4 ML SYR SQ SCH (08:55)
[2017-01-25 14:59] VITALS: BP 121/83; PULSE 73; TEMP 37; O2SAT 97
--- NOTE | 2017-01-25 17:24 | Progress Note ---
Medicine Progress Note Date & Time of Visit: Jan 25, 2017 at 17:21. Subjective sitting up in chair comfortable less pain after eating had 2 loose stools today also yesterday denies other symptoms Objective Last 8 Hrs Date Time Temp Pulse Resp B/P Pulse Ox O2 Delivery O2 Flow Rate FiO2 01/25/17 15:30 Room Air 01/25/17 14:59 37.0 73 16 121/83 97 Room Air Physical Exam: General- oriented x 3, not in distress Neck- no JVD Lungs- clear breath sounds bilaterally, non rales/wheezes Heart- regular rhythm; no murmur, no gallops Abdomen- normal bowel sounds,non distended, soft, non tender Extremities- no pretibial edema Neuro- alert, oriented x 3; no gross focal deficits Skin- warm & dry Laboratory Results: Last 24 Hours Test 01/25/17 05:28 White Blood Count 4.22 K/uL Red Blood Count 4.04 M/uL Hemoglobin 13.7 g/dL Hematocrit 38.8 % Mean Corpuscular Volume 96.0 fL Mean Corpuscular Hemoglobin 33.9 pg Mean Corpuscular Hemoglobin Concent 35.3 g/dl Platelet Count 133 K/uL Mean Platelet Volume 9.6 fL Neutrophils (%) (Auto) 70.4 % Lymphocytes (%) (Auto) 19.9 % Monocytes (%) (Auto) 8.1 % Eosinophils (%) (Auto) 1.2 % Basophils (%) (Auto) 0.2 % Neutrophils # (Auto) 2.97 K/uL Lymphocytes # (Auto) 0.84 K/uL Monocytes # (Auto) 0.34 K/uL Eosinophils # (Auto) 0.05 K/uL Basophils # (Auto) 0.01 K/uL RDW Standard Deviation 44.2 fL RDW Coefficient of Variation 12.6 % Immature Granulocyte % (Auto) 0.2 % Immature Granulocyte # (Auto) 0.01 K/uL Sodium Level 144 mmol/L Potassium Level 3.9 mmol/L Chloride Level 109 mmol/L Carbon Dioxide Level 27 mmol/L Anion Gap 8.0 mmol/L Blood Urea Nitrogen 14 mg/dl Creatinine 1.30 mg/dl Est Creatinine Clear Calc Drug Dose 47.6 ml/min Estimated GFR () 62.7 Estimated GFR (Non- 54.1 BUN/Creatinine Ratio 10.8 Random Glucose 111 mg/dl Calcium Level 8.4 mg/dl Assessment & Plan ACUTE DIVERTICULITIS -CT abd/pelvis + acute diverticulitis of proximal descending colon - IVF and Cipro/Flagyl (Day 5) - (+) post prandial LLQ pain will repeat CT abdomen: improving continue low fiber diet 2 LOOSE BM's from senokot? - check for C diff PERSISTENT COUGH Ongoing for 6 weeks. Patient has been treated with 2 courses of antibiotics, steroids for this and symptoms are improving. -CXR mild L basilar opacity favoring atelectasis, likely old as symptoms are already resolving with residual cough -Flu negative -Robitussin PRN and cont Flonase INCIDENTAL FINDING OF ADRENAL NODULE - CT abd/pelvis + 1 cm adrenal nodule-- slightly increased from prior imaging - recommend f/u MRI within 6 months - appreciate Urology consult HISTORY OF RENAL CELL CA -s/p R nephrectomy in 1999 CKD STAGE 3 -creatinine at baseline BPH -cont Flomax and Proscar GERD -cont PPI DVT PROPHYLAXIS -subq Lovenox CODE STATUS -FULL CODE per discussion with patient upon admission DISPO Expected discharge home when stable Current Inpatient Medications: Current Inpatient Medications Medications (Trade) Dose Ordered Sig/Jorge Route Start Time Stop Time Status Last Admin Dose Admin Enoxaparin Sodium (Lovenox Inj) 40 mg Q24H SQ 01/22/17 09:00 02/21/17 08:59 01/25/17 08:55 40 MG Acetaminophen (Tylenol Tab) 650 mg Q4H PRN PO 01/21/17 21:00 02/20/17 20:59 01/24/17 13:08 650 MG Ondansetron HCl 4 mg 4 mg Q6H PRN IV 01/21/17 21:00 02/20/17 20:59 Ciprofloxacin/ Dextrose 400 mg/ Prmx 200 ml @ 100 mls/hr Q12 IV 01/22/17 09:00 02/01/17 08:59 01/25/17 08:53 100 MLS/HR Metronidazole/Prmx (Flagyl / Nss/ Premixed Nss) 100 ml @ 100 mls/hr Q8H IV 01/22/17 04:00 02/01/17 03:59 01/25/17 11:47 100 MLS/HR Finasteride (Proscar Tab) 5 mg QAM PO 01/22/17 09:00 02/21/17 08:59 01/25/17 08:53 5 MG Tamsulosin HCl (Flomax Cap) 0.4 mg QAM PO 01/22/17 09:00 02/21/17 08:59 01/25/17 08:53 0.4 MG Pantoprazole Sodium (Protonix Tab) 40 mg QAM PO 01/22/17 09:00 02/21/17 08:59 01/25/17 08:53 40 MG Guaifenesin (Robitussin Sugar Free Syrup) 100 mg Q6H PRN PO 01/21/17 21:45 02/20/17 21:44 Febuxostat (Uloric) 40 mg DAILY PO 01/22/17 14:00 02/21/17 13:59 01/25/17 08:54 40 MG Morphine Sulfate (MoRPHine SULFATE INJ) 2 mg Q6H PRN IV 01/22/17 15:30 02/05/17 15:29 01/22/17 16:08 2 MG Magnesium Hydroxide (Milk Of Magnesia Susp) 30 ml Q6H PRN PO 01/23/17 14:00 02/22/17 13:59 Lactobacillus Acidophilus (Floranex Tab) 4 tab TIDM PO 01/24/17 17:45 02/23/17 17:44 01/25/17 13:09 4 TAB Senna/Docusate Sodium (Senokot S Tab) 1 tab DAILY PRN PO 01/24/17 17:30 02/23/17 17:29
[2017-01-25 22:55] VITALS: BP 143/97; PULSE 72; TEMP 37; O2SAT 94
[2017-01-26] MEDS: METRONIDAZOLE / NSS 500 MG in PREMIXED NSS 100 ML IV SCH (03:32)
[2017-01-26 07:36] LABS: BASO % 0.2 %; BASO ABS # 0.01 K/uL (0-0.2); COMPLETE YES; EOS % 2.2 %; HEMATOCRIT 38.1 % (42-52); LYMPH % 19.4 %; LYMPH ABS # 0.79 K/uL (1.2-3.4); MEAN CORPUSCULAR HEMOGLOBIN 33.7 pg (25-34); MEAN CORPUSCULAR HGB CONC 35.4 g/dl (32-36); MEAN PLATELET VOLUME 9.1 fL (7.4-10.4); MONO % 11.5 %; NEUT % 66.7 %; PLATELET COUNT 128 K/uL (130-400); RED BLOOD COUNT 4.01 M/uL (4.7-6.1); WHITE BLOOD COUNT 4.07 K/uL (4.8-10.8)
[2017-01-26 08:08] LABS: BUN/CREATININE RATIO 11.7 (10-20); CALCIUM 8.3 mg/dl (8.5-10.1); CREATININE 1.3 mg/dl (0.60-1.40); POTASSIUM 4.1 mmol/L (3.5-5.1)
[2017-01-26 08:09] VITALS: BP 132/86; PULSE 55; TEMP 36.5; O2SAT 96
[2017-01-26] MEDS: CIPROFLOXACIN / D5W 400 MG in PREMIXED IN D5W 200 ML IV SCH (08:38)
[2017-01-26] MEDS: LACTOBACILLUS ACIDOPHILUS (FLORANEX) TAB PO SCH (08:38)
[2017-01-26] MEDS: PANTOprazole SOD 40 MG TAB PO SCH (08:38)
[2017-01-26] MEDS: TAMSULOSIN HCL 0.4 MG CAP PO SCH (08:38)
[2017-01-26] MEDS: FINASTERIDE 5 MG TAB PO SCH (08:38)
[2017-01-26] MEDS: ENOXAPARIN 40 MG/0.4 ML SYR SQ SCH (08:39)
[2017-01-26] MEDS: FEBUXOSTAT 40 MG TAB PO SCH (08:39)
[2017-01-26 09:29] VITALS: O2SAT 96
--- NOTE | 2017-01-26 09:51 | Progress Note ---
Medicine Progress Note Date & Time of Visit: Jan 26, 2017 at 09:45. Subjective patient states he feels well overall denies abdominal pain, nausea no diarrhea today tolerating diet well denies other symptoms states he is ready and would like to be discharged today Objective Last 8 Hrs Date Time Temp Pulse Resp B/P Pulse Ox O2 Delivery O2 Flow Rate FiO2 01/26/17 09:42 Room Air 01/26/17 09:29 96 Room Air 01/26/17 08:09 36.5 55 16 132/86 96 Room Air Physical Exam: General- oriented x 3, not in distress Neck- no JVD Lungs- clear breath sounds bilaterally Heart- regular rhythm; no murmur,normal rate Abdomen- normal bowel sounds,non distended, soft, non tender Extremities- no pretibial edema Neuro- alert, oriented x 3; no gross focal deficits Skin- warm & dry Laboratory Results: Last 24 Hours Test 01/26/17 07:12 White Blood Count 4.07 K/uL Red Blood Count 4.01 M/uL Hemoglobin 13.5 g/dL Hematocrit 38.1 % Mean Corpuscular Volume 95.0 fL Mean Corpuscular Hemoglobin 33.7 pg Mean Corpuscular Hemoglobin Concent 35.4 g/dl Platelet Count 128 K/uL Mean Platelet Volume 9.1 fL Neutrophils (%) (Auto) 66.7 % Lymphocytes (%) (Auto) 19.4 % Monocytes (%) (Auto) 11.5 % Eosinophils (%) (Auto) 2.2 % Basophils (%) (Auto) 0.2 % Neutrophils # (Auto) 2.71 K/uL Lymphocytes # (Auto) 0.79 K/uL Monocytes # (Auto) 0.47 K/uL Eosinophils # (Auto) 0.09 K/uL Basophils # (Auto) 0.01 K/uL RDW Standard Deviation 43.7 fL RDW Coefficient of Variation 12.7 % Immature Granulocyte % (Auto) 0.0 % Immature Granulocyte # (Auto) 0.00 K/uL Sodium Level 142 mmol/L Potassium Level 4.1 mmol/L Chloride Level 109 mmol/L Carbon Dioxide Level 24 mmol/L Anion Gap 9.0 mmol/L Blood Urea Nitrogen 15 mg/dl Creatinine 1.30 mg/dl Est Creatinine Clear Calc Drug Dose 47.6 ml/min Estimated GFR () 62.7 Estimated GFR (Non- 54.1 BUN/Creatinine Ratio 11.7 Random Glucose 108 mg/dl Calcium Level 8.3 mg/dl Date/Time Source Procedure Growth Status 01/25/17 19:55 Stool C.difficile Toxin B Gene (PCR) - Final No C. difficile toxin B gene detected Complete Assessment & Plan ACUTE DIVERTICULITIS - 01/21/17 CT abd/pelvis + acute diverticulitis of proximal descending colon - IVF and Cipro/Flagyl IV received x 5 days 01/24/17: repeat CT abdomen: moderate improvement of diverticulitis - continue Cipro + Flagyl PO x 9 more days to complete 14 days of treatment continue Floranex TID x 12 more days low fiber diet until completion of treatment course ff up with PCP in 3-5 days LOOSE BOWEL MOVEMENT resolved C diff negative PERSISTENT COUGH Ongoing for 6 weeks. Patient has been treated with 2 courses of antibiotics, steroids for this and symptoms are improving. -CXR mild L basilar opacity favoring atelectasis, likely old as symptoms are already resolving with residual cough -Flu negative -Robitussin PRN and cont Flonase INCIDENTAL FINDING OF ADRENAL NODULE - CT abd/pelvis + 1 cm adrenal nodule-- slightly increased from prior imaging - Urologist Dr. Boyd consulted ff up with Urology Office - recommend f/u MRI within 6 months HISTORY OF RENAL CELL CA -s/p R nephrectomy in 1999 CKD STAGE 3 -creatinine at baseline BPH -cont Flomax and Proscar GERD -cont PPI DVT PROPHYLAXIS -subq Lovenox given CODE STATUS -FULL CODE per discussion with patient upon admission DISPO d/c home today ff up with PCP in 3-5 days ff up with Urologist 02/12/17 Current Inpatient Medications: Current Inpatient Medications Medications (Trade) Dose Ordered Sig/Jorge Route Start Time Stop Time Status Last Admin Dose Admin Enoxaparin Sodium (Lovenox Inj) 40 mg Q24H SQ 01/22/17 09:00 02/21/17 08:59 01/26/17 08:39 40 MG Acetaminophen (Tylenol Tab) 650 mg Q4H PRN PO 01/21/17 21:00 02/20/17 20:59 01/24/17 13:08 650 MG Ondansetron HCl 4 mg 4 mg Q6H PRN IV 01/21/17 21:00 02/20/17 20:59 Ciprofloxacin/ Dextrose 400 mg/ Prmx 200 ml @ 100 mls/hr Q12 IV 01/22/17 09:00 02/01/17 08:59 01/26/17 08:38 100 MLS/HR Metronidazole/Prmx (Flagyl / Nss/ Premixed Nss) 100 ml @ 100 mls/hr Q8H IV 01/22/17 04:00 02/01/17 03:59 01/26/17 03:32 100 MLS/HR Finasteride (Proscar Tab) 5 mg QAM PO 01/22/17 09:00 02/21/17 08:59 01/26/17 08:38 5 MG Tamsulosin HCl (Flomax Cap) 0.4 mg QAM PO 01/22/17 09:00 02/21/17 08:59 01/26/17 08:38 0.4 MG Pantoprazole Sodium (Protonix Tab) 40 mg QAM PO 01/22/17 09:00 02/21/17 08:59 01/26/17 08:38 40 MG Guaifenesin (Robitussin Sugar Free Syrup) 100 mg Q6H PRN PO 01/21/17 21:45 02/20/17 21:44 Febuxostat (Uloric) 40 mg DAILY PO 01/22/17 14:00 02/21/17 13:59 01/26/17 08:39 40 MG Morphine Sulfate (MoRPHine SULFATE INJ) 2 mg Q6H PRN IV 01/22/17 15:30 02/05/17 15:29 01/22/17 16:08 2 MG Magnesium Hydroxide (Milk Of Magnesia Susp) 30 ml Q6H PRN PO 01/23/17 14:00 02/22/17 13:59 Lactobacillus Acidophilus (Floranex Tab) 4 tab TIDM PO 01/24/17 17:45 02/23/17 17:44 01/26/17 08:38 4 TAB Senna/Docusate Sodium (Senokot S Tab) 1 tab DAILY PRN PO 01/24/17 17:30 02/23/17 17:29
[2017-01-26] MEDS ORDERED: CPR500 PO (09:54)
[2017-01-26] MEDS ORDERED: MTR500 PO (09:54)
[2017-01-26] MEDS ORDERED: LCTX PO (09:54)
--- NOTE | 2017-01-26 10:08 | Discharge Instructions ---
Discharge Instructions Admission Reason for Admission: Diverticulitis Discharge Discharge Diagnosis / Problem: ACUTE DIVERTICULITIS Discharge Goals Goal(s): Diagnostic testing, Therapeutic intervention Activity Recommendations Activity Limitations: resume your previous activity . Instructions / Follow-Up Instructions / Follow-Up PLEASE REVIEW YOUR NEW MEDICATION LIST AND FOLLOW INSTRUCTIONS CAREFULLY. MAINTAIN LIGHT MEALS, LOW FIBER DIET DURING TREATMENT COURSE. THEN MAINTAIN HIGH FIBER DIET TO PREVENT RECURRENCE. ENSURE ADEQUATE DAILY FLUID INTAKE. CALL PRIMARY CARE PHYSICIAN OR RETURN TO ER IMMEDIATELY IF WITH INCREASING ABDOMINAL PAIN, NAUSEA, FEVER/CHILLS, BLOOD IN THE STOOLS, DIARRHEA. FOLLOW UP WITH DR. GAMBOA ON Sunday01/30/17 AT 11:10PM FOLLOW UP WITH UROLOGIST SCHEDULED. Current Hospital Diet Patient's current hospital diet: AHA Diet (Heart Healthy), Low Fiber Diet Discharge Diet Recommended Diet: AHA Diet (Heart Healthy), Low Fiber Diet Pending Studies Studies pending at discharge: yes List of pending studies: REPEAT MRI C/O UROLOGIST Medical Emergencies . Who to Call and When: Medical Emergencies: If at any time you feel your situation is an emergency, please call 911 immediately. . Non-Emergent Contact Non-Emergency issues call your: Primary Care Provider Call Non-Emergent contact if: you have a fever, your pain is not controlled, your pain is worsening, you have any medication questions . Past History Medical & Surgical History: (1) Renal cell carcinoma (2) Diverticulitis (3) History of nephrectomy, unilateral (4) BPH (benign prostatic hypertrophy) (5) GERD (gastroesophageal reflux disease) (6) CKD (chronic kidney disease) stage 3, GFR 30-59 ml/min (7) History of partial colectomy (8) History of inguinal hernia repair . "Provider Documentation" section prepared by Danny Moreno. VTE Core Measure Inpt VTE Proph given/why not?: Enoxaparin (Lovenox)SQ
--- NOTE | 2017-01-26 10:14 | Discharge Summary ---
Discharge Summary Date of Service Jan 26, 2017. Discharge Summary Admission Date: Jan 21, 2017 at 21:01 Discharge Date: Jan 26, 2017 Discharge Disposition: Home Principal Diagnosis: ACUTE DIVERTICULITIS Secondary Diagnoses/Problems: PLEASE REFER TO HOSPITAL COURSE BELOW. Procedures: 01/21/17 CT OF THE ABDOMEN AND PELVIS WITHOUT CONTRAST CLINICAL HISTORY: Diffuse abdominal pain. Prior nephrectomy. Hernia. COMPARISON STUDY: CT of the abdomen and pelvis January 25, 2016. TECHNIQUE: Axial images of the abdomen and pelvis were obtained without IV contrast. Images were reviewed in the axial, sagittal, and coronal planes. FINDINGS: There is fatty infiltration of the liver. Evaluation of the abdomen and pelvis is suboptimal on this unenhanced exam. Unenhanced images of the spleen, adrenal glands are unremarkable with the exception of a 1 cm right adrenal nodule. In retrospect, a small nodule may have been present on prior exam but this has increased in size. There is no evidence for a bowel obstruction. Note is made of colonic diverticulosis. There is wall thickening with moderate pericolonic infiltration of the proximal descending colon. There is no free air or abscess. The appearance of the right nephrectomy bed is unchanged. No suspicious osseous lesions are present. No lymphadenopathy is present. A 1.1 cm lesion within the mid to lower pole the of left kidney is suboptimally assessed on this unenhanced exam but shown to represent a cyst on prior study. IMPRESSION: 1. Acute diverticulitis of the proximal descending colon. Moderate inflammation. No free air or abscess. 2. 1 cm right adrenal nodule. In retrospect, a small nodule may have been present on prior CT but this nodule has increased in size. This nodule is indeterminate. A follow-up CT of the abdomen in 6 months is recommended. 3. Status post right nephrectomy. No change in appearance of the nephrectomy bed. 01/24/17 CT OF THE ABDOMEN AND PELVIS WITHOUT CONTRAST CLINICAL HISTORY: Follow-up diverticulitis. COMPARISON STUDY: CT of the abdomen and pelvis January 21, 2017. TECHNIQUE: Axial images of the abdomen and pelvis were obtained without IV contrast. Images were reviewed in the axial, sagittal, and coronal planes. FINDINGS: There is no pneumatosis, free air or portal venous gas. Unenhanced images of liver, spleen, left adrenal gland and pancreas are unremarkable with exception of a few pancreatic proximal calcifications. There is no peripancreatic infiltration. The patient is status post right] knee. No abnormality within the nephrectomy bed is identified on this unenhanced exam. A 1 cm right adrenal nodule is again noted. There is left colon diverticulosis. Inflammation adjacent to the proximal descending colon has moderately improved since exam of January 21, 2017. There is mild residual infiltration. There is no free air or abscess. No suspicious osseous lesions are present. There is no evidence for a bowel obstruction. Gas within the subcutaneous tissues of the anterior abdominal wall is likely due to injections. IMPRESSION: Moderate improvement in acute diverticulitis of the proximal descending colon. Mild residual inflammation. No free air or abscess. Pending Studies/Follow-Up: REPEAT MRI OF THE ABDOMEN TO FF UP ADRENAL NODULE C/O UROLOGIST; Please refer to hospital course below. Medication Reconciliation New Medications: Ciprofloxacin (Ciprofloxacin HCl) 500 Mg Tab 1 TAB PO BID for 9 Days, #18 TABS 0 Refills Metronidazole (Metronidazole) 500 Mg Tab 1 TAB PO TID for 9 Days, #27 TABS 0 Refills Lactobacillus Acidophilus (Floranex) 1 Tab Tab 4 TAB PO TIDM for 12 Days, #144 TAB 1 Refill Continued Medications: Ergocalciferol (Vitamin D 49555 Unit) 50,000 Unit Cap 46262 UNIT PO WK, CAP Febuxostat (Uloric) 40 Mg Tab 40 MG PO QAM Fexofenadine Hcl (Jigna Allergy) 180 Mg Tab 180 MG PO QAM Finasteride (Finasteride) 5 Mg Tab 5 MG PO QAM Fluticasone Propionate (Nasal) (Flonase Allergy Relief) 50 Mcg/Act Spr 2 SPRAYS INH DAILY Omeprazole (Omeprazole) 20 Mg Tab 20 MG PO QAM, TAB Tamsulosin HCl (Tamsulosin HCl) 0.4 Mg Cap 0.4 MG PO QAM Admission Information HPI (per Admitting provider): This is a 71 y/o male with PMHx of diverticulitis s/p partial colectomy, renal CA s/p R nephrectomy, CKD stage 3 and other problems as outlined below who presents to the ED c/o upper respiratory sxs for 6 weeks. Pt reports that for the past 6 weeks he has been fatigued with low grade fevers (T max 101*F), headaches, congestion and cough productive of clear sputum. He was seen by his PCP multiple times and has completed a course of Augmentin, Levaquin and 2 different courses of Prednisone with no resolution of his sxs. Yesterday, patient developed abdominal pain which he describes as 5/10 upper abdominal "soreness". BM have been normal. Pt has a history of diverticulitis s/p partial colectomy in 1998. Last colonoscopy from 2013 + diverticulosis throughout colon. Pt denies chest pain, SOB, wheezing, N/V, constipation, diarrhea, hematochezia, melena, or bladder issues, LE edema ,calf pain, lightheadedness/ dizziness. In the ED, vitals are stable. Pt is afebrile with leukocytosis >14k. CT abd/pelvis + acute diverticulitis of the proximal descending colon. CXR mild L basilar opacity favoring atelectasis. Pt received IVF, Cipro/Flagyl and Dilaudid in the ED. He will be admitted for further evaluation and treatment. Physical Exam (per Admitting): General Appearance: WD/WN, no apparent distress, + pertinent finding (Pt is laying in bed with at bedside ) Head: normocephalic, atraumatic Eyes: normal inspection ENT: hearing grossly normal Neck: supple Respiratory/Chest: chest non-tender, lungs clear, normal breath sounds, no respiratory distress Cardiovascular: regular rate, rhythm, no edema, no murmur Abdomen/GI: normal bowel sounds, soft, + tenderness (upper>lower) Back: normal inspection Extremities/Musculoskelatal: normal inspection, no calf tenderness, no pedal edema Neurologic/Psych: alert, normal mood/affect, oriented x 3 Skin: normal color, warm/dry Hospital Course ACUTE DIVERTICULITIS - 01/21/17 CT abd/pelvis + acute diverticulitis of proximal descending colon - IVF and Cipro/Flagyl IV received x 5 days 01/24/17: repeat CT abdomen: moderate improvement of diverticulitis - continue Cipro + Flagyl PO x 9 more days to complete 14 days of treatment continue Floranex TID x 12 more days low fiber diet until completion of treatment course ff up with PCP in 3-5 days LOOSE BOWEL MOVEMENT resolved C diff negative PERSISTENT COUGH Ongoing for 6 weeks. Patient has been treated with 2 courses of antibiotics, steroids for this and symptoms are improving. -CXR mild L basilar opacity favoring atelectasis, likely old as symptoms are already resolving with residual cough -Flu negative -Robitussin PRN and cont Flonase INCIDENTAL FINDING OF ADRENAL NODULE - CT abd/pelvis + 1 cm adrenal nodule-- slightly increased from prior imaging - Urologist Dr. Boyd consulted ff up with Urology Office - recommend f/u MRI within 6 months HISTORY OF RENAL CELL CA -s/p R nephrectomy in 1999 CKD STAGE 3 -creatinine at baseline BPH -cont Flomax and Proscar GERD -cont PPI DVT PROPHYLAXIS -subq Lovenox given CODE STATUS -FULL CODE per discussion with patient upon admission DISPO d/c home ff up with PCP in 3-5 days ff up with Urologist 02/12/17 Total time spent on discharge = 40 minutes This includes examination of the patient, discharge planning, medication reconciliation, and communication with other providers. Discharge Instructions Discharge Instructions Admission Reason for Admission: Diverticulitis Discharge Discharge Diagnosis / Problem: ACUTE DIVERTICULITIS Discharge Goals Goal(s): Diagnostic testing, Therapeutic intervention Activity Recommendations Activity Limitations: resume your previous activity . Instructions / Follow-Up Instructions / Follow-Up PLEASE REVIEW YOUR NEW MEDICATION LIST AND FOLLOW INSTRUCTIONS CAREFULLY. MAINTAIN LIGHT MEALS, LOW FIBER DIET DURING TREATMENT COURSE. THEN MAINTAIN HIGH FIBER DIET TO PREVENT RECURRENCE. ENSURE ADEQUATE DAILY FLUID INTAKE. CALL PRIMARY CARE PHYSICIAN OR RETURN TO ER IMMEDIATELY IF WITH INCREASING ABDOMINAL PAIN, NAUSEA, FEVER/CHILLS, BLOOD IN THE STOOLS, DIARRHEA. FOLLOW UP WITH DR. GAMBOA ON Sunday01/30/17 AT 11:10PM FOLLOW UP WITH UROLOGIST SCHEDULED. Current Hospital Diet Patient's current hospital diet: AHA Diet (Heart Healthy), Low Fiber Diet Discharge Diet Recommended Diet: AHA Diet (Heart Healthy), Low Fiber Diet Pending Studies Studies pending at discharge: yes List of pending studies: REPEAT MRI C/O UROLOGIST Medical Emergencies . Who to Call and When: Medical Emergencies: If at any time you feel your situation is an emergency, please call 911 immediately. . Non-Emergent Contact Non-Emergency issues call your: Primary Care Provider Call Non-Emergent contact if: you have a fever, your pain is not controlled, your pain is worsening, you have any medication questions . Past History Medical & Surgical History: (1) Renal cell carcinoma (2) Diverticulitis (3) History of nephrectomy, unilateral (4) BPH (benign prostatic hypertrophy) (5) GERD (gastroesophageal reflux disease) (6) CKD (chronic kidney disease) stage 3, GFR 30-59 ml/min (7) History of partial colectomy (8) History of inguinal hernia repair . "Provider Documentation" section prepared by Danny Moreno. VTE Core Measure Inpt VTE Proph given/why not?: Enoxaparin (Lovenox)SQ
[2017-01-26 10:16] VITALS: BP 132/86; PULSE 55; TEMP 36.5; O2SAT 96
[2017-07-05] MEDS ORDERED: HYDROCORTISONE PO ×2 (10:52)
[2017-07-05] MEDS ORDERED: B-CO1CAP17 PO (10:52)
[2017-07-05] MEDS ORDERED: FEXO1TAB49 PO (10:52)
[2017-07-05] MEDS ORDERED: GABA-112 PO (10:52)
[2017-07-05] MEDS ORDERED: CHOL1000 PO (10:52)
[2017-07-05] MEDS ORDERED: LORA-741 PO (10:52)
== END 2017-01-26 11:24 | disposition home or self-care (01) | DRG 392 ==
LOC: ENRESERVDT → ENRESERVTM → C.EDB 17:06 → C.MSN 21:01
PROVIDERS: ADMIT Hospitalist; ATTEND Internal Medicine
DX: K57.32 Diverticulitis of large intestine without perforation or abscess without bleeding (principal); J98.11 Atelectasis; R05 Cough; E27.8 Other specified disorders of adrenal gland; N18.3 Chronic kidney disease, stage 3 (moderate); N40.0 Benign prostatic hyperplasia without lower urinary tract symptoms; K21.9 Gastro-esophageal reflux disease without esophagitis; R19.7 Diarrhea, unspecified; Z87.19 Personal history of other diseases of the digestive system; Z90.49 Acquired absence of other specified parts of digestive tract; Z85.528 Personal history of other malignant neoplasm of kidney; Z90.5 Acquired absence of kidney; Z87.891 Personal history of nicotine dependence; Z82.49 Family history of ischemic heart disease and other diseases of the circulatory system

== ENCOUNTER → 2017-02-13 | Outpatient (CLI) | payer OTHER ==
[~2017-02-13] MED LIST changes: +B-CO1CAP17 PO; +CHOL1000 PO; +CPR500 PO; +ERGO500037 PO; +FLUT0.15 INH; +GABA-112 PO; +HYDROCORTISONE PO; +LCTX PO; +LORA-741 PO; +MTR500 PO
== END | disposition home or self-care (01) ==
LOC: C.LABPBG 12:15
PROVIDERS: ATTEND Neuromusculoskeletal Medicine & OMM
DX: N40.1 Benign prostatic hyperplasia with lower urinary tract symptoms (principal); R53.83 Other fatigue

== ENCOUNTER 2017-07-12 05:15 | Observation (INO) | payer OTHER ==
[2017-07-05 10:54] VITALS: BMI 28.0
--- NOTE | 2017-07-05 11:36 | PAT Medication Instructions ---
Service Date Jul 05, 2017. Current Home Medication List Cholecalciferol (Vitamin D3), 1 TAB PO BID Febuxostat (Uloric), 40 MG PO QAM Fexofenadine Hcl (Jigna Allergy), 1 TAB PO QAM Finasteride (Finasteride), 5 MG PO QAM Gabapentin (Neurontin), 100 MG PO BID Lorazepam (Ativan), 0.5 MG PO TID PRN for PRN Omeprazole (Omeprazole), 20 MG PO QAM PRN for PRN Tamsulosin HCl (Tamsulosin HCl), 0.4 MG PO HS Vitamin B Cmplx/Vitc/Folic Ac (Nephrocaps), 1 CAP PO QPM [Hydrocortisone], 10 MG PO QAM [Hydrocortisone], 5 MG PO 1300/1700 Medication Instructions For Your Scheduled Surgery - Hold the following medications the morning of surgery: Fexofenadine Hcl (Jigna Allergy), 1 TAB PO QAM - Take the following medications the morning of surgery with a sip of water OTHERWISE NOTHING TO EAT OR DRINK AFTER MIDNIGHT: [Hydrocortisone], 10 MG PO QAM Cholecalciferol (Vitamin D3), 1 TAB PO BID Febuxostat (Uloric), 40 MG PO QAM Finasteride (Finasteride), 5 MG PO QAM Gabapentin (Neurontin), 100 MG PO BID Lorazepam (Ativan), 0.5 MG PO TID PRN for PRN Omeprazole (Omeprazole), 20 MG PO QAM PRN for PRN - Take the following medications as scheduled the night before surgery: [Hydrocortisone], 5 MG PO 1300/1700 Cholecalciferol (Vitamin D3), 1 TAB PO BID Gabapentin (Neurontin), 100 MG PO BID Lorazepam (Ativan), 0.5 MG PO TID PRN for PRN Tamsulosin HCl (Tamsulosin HCl), 0.4 MG PO HS Vitamin B Cmplx/Vitc/Folic Ac (Nephrocaps), 1 CAP PO QPM If you have any questions please call us at [phone] or [phone] or [phone]
[2017-07-05 12:09] LABS: BASO % 0.3 %; BASO ABS # 0.02 K/uL (0-0.2); COMPLETE YES; EOS % 0.9 %; IG% 0.1 %; LYMPH % 10.2 %; LYMPH ABS # 0.76 K/uL (1.2-3.4); MEAN CELL VOLUME 96.7 fL (80-100); MEAN CORPUSCULAR HEMOGLOBIN 34.5 pg (25-34); MEAN CORPUSCULAR HGB CONC 35.7 g/dl (32-36); MEAN PLATELET VOLUME 9.6 fL (7.4-10.4); MONO % 9.9 %; NEUT % 78.6 %; PLATELET COUNT 146 K/uL (130-400); RED BLOOD COUNT 4.55 M/uL (4.7-6.1); WHITE BLOOD COUNT 7.47 K/uL (4.8-10.8)
[2017-07-05 12:11] LABS: URINE APPEARANCE CLEAR (CLEAR); URINE BILIRUBIN NEG (NEG); URINE COLOR YELLOW; URINE NITRITE NEG (NEG); URINE SPECIFIC GRAVITY 1.023 (1.000-1.030); UROBILINOGEN NEG (NEG)
[2017-07-05 12:18] LABS: PARTIAL THROMBOPLASTIN RATIO 0.9; PROTHROMBIN TIME (PATIENT) 10.3 SECONDS (9.0-12.0)
[2017-07-05 12:32] LABS: MANUAL MICROSCOPIC REQUIRED? NO; REVIEW REQ? NO
[2017-07-05 12:42] LABS: BUN/CREATININE RATIO 14.8 (10-20); CALCIUM 9.2 mg/dl (8.5-10.1); CREATININE 1.3 mg/dl (0.60-1.40); POTASSIUM 4.2 mmol/L (3.5-5.1)
--- NOTE | 2017-07-10 11:31 | HISTORY & PHYSICAL EXAMINATION ---
DATE OF ADMISSION: 07/12/2017 He is being preoped for laminectomy and foraminotomy, L5-S1. CHIEF COMPLAINT: Lower extremity difficulties, paresthesias, numbness and tingling. His problem is made worse with climbing and walking short distances and alleviated by rest, mostly numbness, mostly pain. PAST MEDICAL HISTORY: Negative for cardiac disease. No diabetes or thyroid disorder. No anemia. No heart failure. Does have enlarged prostate, acid reflux, and renal cell carcinoma. No anesthesia complications. SOCIAL HISTORY: Nonsmoker, minimal alcohol. PAST SURGICAL HISTORY: Include bowel resection, kidney removal, cancer nodule removal, and hernia repair. ALLERGIES: Negative. MEDICATIONS: Kept on the patient inquiry including tamsulosin, finasteride, hydrocortisone, Jigna, vitamin D and gabapentin. He also is refusing any blood products to anabaptist affiliation. REVIEW OF SYSTEMS: Denies any blurred vision, double vision, tinnitus, or vertigo. Denies angina or chest pain. No nausea, vomiting, urgency, or frequency. His problem is well centered in the spine and lower extremities. PHYSICAL EXAMINATION: GENERAL: He is 5 feet 5 inches and 167 pounds. He is in no terrible distress. He explains himself well, appropriately dressed. VITAL SIGNS: Blood pressure 130/80, pulse of 80, and respiratory rate 16. NEUROLOGIC: Intact, 5/5 strength, good sensation, motor ability, no deficit. He does have pain with structural testing. He does have pain with ambulation to the S1 nerve root distribution area. HEART: Normal S1 and S2. No S3. IMPRESSION: Foraminal stenosis lumbar spine. DISPOSITION: Includes laminectomy L5-S1 lumbar spine.
[2017-07-12] VITALS (9 sets, daily range): BP systolic 120–173; BP diastolic 78–96; PULSE 59–91; TEMP 36.4–36.8; O2SAT 93–100; Ht 165.1 cm; Wt 78.5 kg
[~2017-07-12] VITALS: Ht 165.1 cm; Wt 78.5 kg
[~2017-07-12 05:15] MED LIST changes: -CPR500 PO; -ERGO500037 PO; -FLUT0.15 INH; -LCTX PO; -MTR500 PO
[2017-07-12] MEDS ORDERED: SODIUM CHLORIDE 0.9% 1000ML 1,000 ML IV SCH (06:00)
[2017-07-12] MEDS ORDERED: CEFAZOLIN 2000 MG/60 ML D5W IV SCH (06:00)
[2017-07-12] MEDS ORDERED: LACTATED RINGER'S 1000ML 1,000 ML IV SCH (06:00)
[2017-07-12] MEDS ORDERED: BUPIVACAINE/EPINEPHRINE 0.5% MPF 1:200,000 10 ML VIAL ONE (06:49)
[2017-07-12] MEDS ORDERED: FENTANYL CITRATE INJ 50 MCG/1 ML 2 ML VIAL ONE ×2 (06:49→07:44)
[2017-07-12] MEDS ORDERED: MIDAZOLAM HCL 1 MG/ML 2ML VIAL ONE (06:49)
[2017-07-12] MEDS ORDERED: GELATIN SPONGE SZ 100 ONE (06:49)
[2017-07-12] MEDS ORDERED: THROMBIN FOR SOLN 20000 UNIT KIT ONE (06:49)
[2017-07-12] MEDS ORDERED: BACITRACIN 50000 UNIT VIAL ONE (06:50)
[2017-07-12] MEDS ORDERED: VANCOMYCIN HCL 1000MG/20ML VIAL ONE (06:50)
--- NOTE | 2017-07-12 07:12 | History & Physical Bridge Note ---
H&P Re-Evaluation Bridge Note: I have examined the patient, reviewed the History & Physical and in the interval since the performance of the History & Physical I have noted the following changes of clinical significance: No changes noted
[2017-07-12] MEDS ORDERED: HYDROmorphone INJ 2 MG/ML SYR/VIAL ONE (07:44)
[2017-07-12] MEDS ORDERED: HYDROCORTISONE SOD SUCCINATE 100 MG/2 ML VIAL ONE (07:54)
[2017-07-12] MEDS ORDERED: EpHEDrine SULFATE 50MG/5ML SYR ONE ×2 (07:54→11:04)
[2017-07-12] MEDS ORDERED: DEXAMETHASONE SOD INJ 4 MG/ML VIAL ONE (07:54)
[2017-07-12] MEDS ORDERED: PROPOFOL IV EMULSION 10 MG/ML 20 ML VIAL IV ONE (07:54)
[2017-07-12] MEDS ORDERED: ROCURONIUM BROMIDE 10 MG/ML 5 ML VIAL ONE (07:54)
[2017-07-12] MEDS ORDERED: LIDOCAINE HCL 2% 2 ML VIAL (20MG/ML) ONE (07:54)
[2017-07-12] MEDS ORDERED: ATROPINE SULFATE 0.1 MG/ML 5ML SYR IV PRN (08:00)
[2017-07-12] MEDS ORDERED: EpHEDrine SULFATE INJ 50 MG/ML AMP IV PRN (08:00)
[2017-07-12] MEDS ORDERED: HYDROmorphone INJ 1 MG/ML SYR IV PRN ×2 (08:00→09:00)
[2017-07-12] MEDS ORDERED: ONDANSETRON INJ 2 MG/ML 2 ML VIAL IV PRN ×2 (08:00→09:00)
[2017-07-12] MEDS ORDERED: FENTANYL CITRATE INJ 50 MCG/1 ML 2 ML VIAL IV PRN (08:00)
--- NOTE | 2017-07-12 08:50 | DIAGNOSTIC IMAGING REPORT ---
INTRAOPERATIVE SPINE SINGLE VIEW CLINICAL HISTORY: L5-S1 LAMINECTOMY COMPARISON STUDY: No previous studies for comparison. FINDINGS: A single intraoperative fluoroscopic spot images provided for interpretation. 2 seconds of fluoroscopic time was utilized. There is a metallic probe within the posterior elements the L5-S1 level. IMPRESSION: Intraoperative fluoroscopic spot image for localization purposes. Electronically signed by: Kapil Hagan M.D. 07/12/2017 8:48 AM Dictated Date/Time: 07/12/2017 8:48 AM
--- NOTE | 2017-07-12 08:55 | [facility] Post Operative Brief Note ---
Immediate Operative Summary Operative Date Jul 12, 2017. Pre-Operative Diagnosis Foraminal Stenosis Lumbar Spine Post-Operative Diagnosis Foraminal Stenosis Lumbar Spine Procedure(s) Performed L5-S1 Laminectomy Surgeon Dr Vaz Senior Geotechnical Engineer Surgeon(s) Isacc Zacarias PA-C Estimated Blood Loss 50 cc Findings stenosis Specimens None as per surgeon Complication(s) None Disposition Recovery Room / PACU
[2017-07-12] MEDS ORDERED: MAGNESIUM HYDROXIDE SUSP 30 ML UDC PO PRN (09:00)
[2017-07-12] MEDS ORDERED: PROMETHAZINE HCL INJ 12.5 MG in SODIUM CHLORIDE 0.9% 50ML 50 ML IV PRN (09:00)
[2017-07-12] MEDS ORDERED: LORAZEPAM 1 MG TAB PO PRN (09:00)
[2017-07-12] MEDS ORDERED: LORAZEPAM 0.5 MG TAB PO PRN (09:00)
[2017-07-12] MEDS ORDERED: HYDROmorphone INJ 2 MG/ML SYR/VIAL IV PRN (09:00)
[2017-07-12] MEDS ORDERED: METOCLOPRAMIDE HCL INJ 5 MG/ML 2 ML VIAL IV PRN (09:00)
[2017-07-12] MEDS ORDERED: ACETAMINOPHEN 325 MG TAB PO PRN (09:00)
[2017-07-12] MEDS ORDERED: LORAZEPAM INJ 1 MG in SYRINGE 0 ML IV PRN (09:00)
--- NOTE | 2017-07-12 09:03 | OPERATIVE REPORT ---
DATE OF OPERATION: 07/12/2017 PREOPERATIVE DIAGNOSIS: Stenosis lumbar spine L5-S1. POSTOPERATIVE DIAGNOSIS: Same. PROCEDURE: Included a laminectomy at L5-S1, foraminotomy L5-S1, bilateral lumbar spine. SURGEON: Dr. Vaz. DRILL RIG OPERATOR: Isacc Zacarias PA-C. COMPLICATIONS: Zero. BLOOD LOSS: 50 mL. Sponge and needle count correct at close of the procedure. No implants used. The patient was taken to the operating room, a general intubated anesthetic provided to the patient, placed prone, scrubbed, prepped and draped sterile. We made a skin incision, fascial incision and dissected down to the lamina at L5-S1, marked this with a marker. We did a laminectomy at L5-S1 foraminotomies, partial facetectomies. I undercut the facet joints significantly at L5-S1. I took out all ligamentum flavum. We examined the disc, there was no pressure. We irrigated and closed in layers. Sterile dressing applied. The patient returned to PACU stable. Vancomycin was placed deep to the wound and also Hemovac drain. I attest to the content of the Intraoperative Record and any orders documented therein. Any exception s are noted below.
[2017-07-12] MEDS ORDERED: IV FLUIDS COMPLETED PRN (09:15)
--- NOTE | 2017-07-12 09:35 | Anesthesiology Progress Note ---
Anesthesia Post Op Note Date & Time Jul 12, 2017 at 09:35 Vital Signs Pain Intensity: 2 Vital Signs Past 12 Hours Date Time Temp Pulse Resp B/P (MAP) Pulse Ox O2 Delivery O2 Flow Rate FiO2 07/12/17 09:30 36.1 84 26 141/84 97 Nasal Cannula 2 07/12/17 09:20 92 26 131/72 99 Nasal Cannula 2 07/12/17 09:10 94 28 146/87 100 Oxymask 10 07/12/17 09:00 98 21 143/93 99 Oxymask 10 07/12/17 08:52 36.3 88 16 157/96 97 Oxymask 10 07/12/17 05:40 36.5 59 20 173/92 (119) 96 Room Air Notes Mental Status: alert / awake / arousable, participated in evaluation Pt Amnestic to Procedure: Yes Nausea / Vomiting: adequately controlled Pain: adequately controlled Airway Patency, RR, SpO2: stable & adequate BP & HR: stable & adequate Hydration State: stable & adequate Anesthetic Complications: no major complications apparent
[2017-07-12] MEDS: PANTOprazole SOD 40 MG TAB PO SCH (11:00)
[2017-07-12] MEDS: FEXOFENADINE HCL 180 MG TAB PO SCH (11:00)
[2017-07-12] MEDS ORDERED: NEOSTIGMINE METHYLSULFATE 5 MG/5 ML SYR ONE (11:04)
[2017-07-12] MEDS ORDERED: GLYCOPYRROLATE INJ 0.2 MG/ML VIAL ONE (11:04)
[2017-07-12] MEDS ORDERED: ONDANSETRON INJ 2 MG/ML 2 ML VIAL ONE (11:04)
[2017-07-12] MEDS: SODIUM CHLORIDE 0.9% 1000ML 1,000 ML IV SCH ×2 (11:39→23:00)
[2017-07-12] MEDS: OXYCODONE/ACETAMINOPHEN 5-325 TAB PO PRN ×3 (13:13→23:04)
--- NOTE | 2017-07-12 13:53 | Discharge Instructions ---
Discharge Instructions Date of Service Jul 12, 2017. Admission Reason for Admission: Lumbar Spinal Stenosis Discharge Discharge Diagnosis / Problem: same Discharge Goals Goal(s): Improve function Activity Recommendations Activity Limitations: as noted below Lifting Limitations: no more than 10 pounds, gradually increase as tolerated Exercise/Sports Limitations: until after follow-up appointment Shower/Bathe: keep incision dry Driving or Machine Use: Home , rest recover . Instructions / Follow-Up Instructions / Follow-Up MEDICATIONS: Please take your prescriptions as instructed at your pre-op appointment. SPECIAL CARE: The following information is intended to answer some of the common questions and concerns regarding your surgery. Each patient is an individual and receives individual counselling throughout the course of treatment, from diagnosis to surgery all the way through recovery. What follows is not an exhaustive list, but should be a useful guide to some of the common questions and concerns patients have regarding their surgeries. These are not provided to keep you from calling us; rather, they give you something accurate and concrete to reference as you recover from your procedure. If you need us, we are available to you. As always, if you are not sure about something, call us at [phone]. MEDICAL EMERGENCIES: For these conditions, call 911 or go to your local hospital-based Emergency Department - not [facility] or equivalent. * Paralysis * Severe chest pain or difficulty breathing * Swelling or redness of either leg Spine procedures can be rather complex and though complications are rare, they do occur. In such cases, effective advice regarding emergency situations cannot always be addressed over the telephone. You may be referred to the emergency department for more effective management of your problem. Activity Limitations: It is important to give your body time to heal, so please limit your activities : * In general, don't do anything that moves your spine too much. You should avoid contact sports, twisting or heavy lifting while you recover. * 5-10 pounds is all you should attempt to lift. * You should not plan on driving for approximately 3 weeks and you should avoid traveling more than 30-45 minutes at a time. Longer trips should be broken down with walking breaks spaced appropriately. * Physical therapy is not usually required. * Walking and good posture practices will help you recover and regain your function. * Avoid straining or sudden changes in position. * In general, the goal is to take it easy and recover. Don't cause any new problems. Just relax. Showers: * Do not take a bath, use a Jacuzzi or hot tub or otherwise submerge your incision. * It is usually safe to take a shower 4-5 days after your surgery. * Your incision does not require any special creams or ointments. * Simply clean it with soap and water, dry and re-dress with a clean bandage afterwards. Incision: * Keep incision clean, dry and protected until your first follow-up appointment. * Some amount of drainage and redness is normal. Any drainage should be fairly clear and not have a foul odor. * If you feel anything is wrong or you have excessive drainage, please call us. * Your stitches and anna will be removed 10-14 days after your surgery. At the time of your first post-op visit. * Neck surgeries are typically closed with a suture underneath the skin. The steri-strips over the incision should be maintained until we see you in the office. Bracing: * You may be provided with a back or neck brace to encourage good posture and prevent injury. It will remind you not to do too much as you heal and will alert others to the fact that you have had a surgery. * Back braces may be removed for showers and when you are resting at home. They must be worn when you are walking around for any period of time or for travel. * For neck surgery, you will likely be provided with two cervical collars. The soft collar ([place] or foam rubber) is worn most commonly throughout the day and while sleeping. The plastic collar (provided at the hospital) is for showering/bathing. * Except while eating, collars should remain in place. More specifically, bracing is provided for a purpose and should be worn. * Please obtain your brace or collars prior to your operation and bring them to the hospital with you on the day of surgery. * You should also bring your collars to your post-op appointment with Dr. Vaz. You should always take good care of your body and practice healthy habits, especially following surgery. You should: * Follow your doctor's treatment plan * Sit and stand properly with good posture (ears over shoulders, shoulders over hips) Don't slouch * Learn to lift correctly * Exercise regularly (low-impact aerobic exercise is especially good, but check with your doctor first) * Generally, be up and walking for 5-10 minutes at a time at least 3-4 times per day from the day you get home * Increasing walking to tolerance until you can walk for 20-30 minutes at a time * Attain and maintain a healthy body weight * Eat healthy foods ( a well-balanced, low-fat diet rich in fruits and vegetables) and get enough calcium * Avoid excessive use of alcohol When to call our office - If you notice any of the following: * Increased pain not relieve by pain medicine * Fevers greater then 100 degrees F, chills or flu symptoms * Increased redness around incision * Drainage from the incision that is not clear * Any foul smelling drainage * Swelling or fluid collection beneath the skin Miscellaneous: * In the hospital, you may be given a walker or cane for support while walking. These are temporary needs and are intended to prevent injuries due to falls. You may discontinue them when you feel strong and steady enough on your feet. * Sleep in a comfortable position. We find that many patients find a lounge chair or recliner with several pillows to be beneficial in the early post-operative period. * The support stockings should be used for 7-10 days and may be discontinued when you are back to walking more and conducting usual household activities. No problem is insignificant. We are here to help you and get you well. Contact us at [phone]. Definitions: Foraminotomy: If part of the disc or a bone spur (osteophyte) is pressing on a nerve as it leaves the vertebra (through an exit called the foramen), a foraminotomy may be done. Otomy means "to make an opening." A foraminotomy is making the opening of the foramen larger, so the nerve can exit without being compressed. Laminotomy: Similar to the foraminotomy, a laminotomy makes a larger opening, this time in your bony plate protecting your spinal canal and spinal cord (the lamina). The lamina may be pressing on your nerve, so the surgeon may make more room for the nerves using a laminotomy. Laminectomy: Sometimes, a laminotomy is not sufficient. The surgeon may need to remove all or part of the lamina. This procedure is called a laminectomy. This can often be done at many levels without any harmful effects. Current Hospital Diet Patient's current hospital diet: Regular Diet Discharge Diet Recommended Diet: Regular Diet Procedures Procedures Performed: L5-S1 Laminectomy Pending Studies Studies pending at discharge: no Medical Emergencies . Who to Call and When: Medical Emergencies: If at any time you feel your situation is an emergency, please call 911 immediately. . Non-Emergent Contact Non-Emergency issues call your: Surgeon Call Non-Emergent contact if: you have any medication questions . "Provider Documentation" section prepared by Eder Vaz. . VTE Core Measure Inpt VTE Proph given/why not?: Treatment not indicated
[2017-07-12] MEDS: HYDROCORTISONE 10 MG TAB PO SCH ×2 (14:22→17:37)
[2017-07-12] MEDS: CEFAZOLIN IV 1,000 MG in DEXTROSE 5% 50ML 50 ML IV SCH ×2 (15:32→23:55)
[2017-07-12] MEDS: DEXAMETHASONE INJ 10 MG in SYRINGE 0 ML IV SCH ×2 (15:34→23:55)
[2017-07-12] MEDS: GABAPENTIN 100 MG CAP PO SCH (20:38)
[2017-07-12] MEDS ORDERED: TAMSULOSIN HCL 0.4 MG CAP PO SCH (21:00)
[2017-07-12] MEDS ORDERED: NEPHROCAPS PO SCH (21:00)
[2017-07-13 04:00] VITALS: BP 136/76; PULSE 86; TEMP 36.9; O2SAT 95
[2017-07-13] MEDS ORDERED: BISACODYL 5 MG TABEC PO PRN (06:00)
[2017-07-13] MEDS ORDERED: BISACODYL 10 MG SUPP PR PRN (06:00)
[2017-07-13] MEDS ORDERED: NURSING VERBAL MED ORDER ONE ×2 (06:30→08:00)
[2017-07-13 07:15] VITALS: BP 124/83; PULSE 70; TEMP 36.4; O2SAT 93
[2017-07-13] MEDS: DEXAMETHASONE INJ 10 MG in SYRINGE 0 ML IV SCH (07:43)
[2017-07-13] MEDS: CEFAZOLIN IV 1,000 MG in DEXTROSE 5% 50ML 50 ML IV SCH (07:43)
[2017-07-13] MEDS: OXYCODONE/ACETAMINOPHEN 5-325 TAB PO PRN ×2 (07:46→12:18)
[2017-07-13] MEDS: FEXOFENADINE HCL 180 MG TAB PO SCH (07:48)
[2017-07-13] MEDS: GABAPENTIN 100 MG CAP PO SCH (07:49)
[2017-07-13] MEDS: PANTOprazole SOD 40 MG TAB PO SCH (07:49)
--- NOTE | 2017-07-13 08:09 | DISCHARGE SUMMARY ---
SUBJECTIVE: 44, alert, oriented, no chest pain, shortness of breath, no confusion. 136/76, blood pressure. Laboratory work not indicated. ASSESSMENT: Status post lumbar spine laminectomy L5-S1. DISPOSITION: Will get him discharged home later this morning. Instructions, precautions on the chart and given to him in the office. He may do without the SWETHA support stockings. He is to keep his wound clean and dry and change dressings approximately every 48-72 hours. The back brace is to be worn for comfort.
[2017-07-13] MEDS ORDERED: POLYETHYLENE (MIRALAX) 17 GM PACK PO SCH (09:00)
[2017-07-13] MEDS ORDERED: FINASTERIDE 5 MG TAB PO SCH (09:00)
[2017-07-13] MEDS ORDERED: FEBUXOSTAT 40 MG TAB PO SCH (09:00)
[2017-07-13] MEDS ORDERED: HYDROCORTISONE 10 MG TAB PO SCH (09:00)
--- NOTE | 2017-07-13 09:58 | Anesthesiology Progress Note ---
Anesthesia Post Op Note Date & Time Jul 13, 2017 at 09:58 Vital Signs Pain Intensity: 4.0 Vital Signs Past 12 Hours Date Time Temp Pulse Resp B/P (MAP) Pulse Ox O2 Delivery O2 Flow Rate FiO2 07/13/17 07:25 Room Air 07/13/17 07:15 36.4 70 18 124/83 (97) 93 Room Air 07/13/17 04:00 36.9 86 16 136/76 (96) 95 Room Air 07/12/17 23:50 Room Air 07/12/17 22:42 36.8 82 16 120/82 (95) 94 Room Air Notes Mental Status: alert / awake / arousable, participated in evaluation Pt Amnestic to Procedure: Yes Nausea / Vomiting: adequately controlled Pain: adequately controlled Airway Patency, RR, SpO2: stable & adequate BP & HR: stable & adequate Hydration State: stable & adequate Anesthetic Complications: no major complications apparent
[2017-07-13 10:05] VITALS: BP 124/83; PULSE 70; TEMP 36.4; O2SAT 93
== END 2017-07-13 13:12 | disposition home or self-care (01) ==
LOC: C.ACU 05:15 → C.3E 08:54 → ENRESERV 09:32
PROVIDERS: ADMIT Orthopaedic Surgery Orthopaedic Surgery of the Spine; ATTEND Orthopaedic Surgery Orthopaedic Surgery of the Spine
DX: M48.06 Spinal stenosis, lumbar region (principal); N40.0 Benign prostatic hyperplasia without lower urinary tract symptoms; Z90.5 Acquired absence of kidney; Z85.528 Personal history of other malignant neoplasm of kidney; Z90.49 Acquired absence of other specified parts of digestive tract

== ENCOUNTER → 2017-11-05 | Outpatient (CLI) | payer OTHER ==
[2017-11-05 12:43] LABS: ALT/SGPT 51 U/L (12-78); AST/SGOT 25 U/L (15-37); BLOOD UREA NITROGEN 18 mg/dl (7-18); BUN/CREATININE RATIO 13.4 (10-20); CALCIUM 8.7 mg/dl (8.5-10.1); CARBON DIOXIDE 25 mmol/L (21-32); CHLORIDE 104 mmol/L (98-107); CREATININE 1.38 mg/dl (0.60-1.40); GLUCOSE 201 mg/dl (70-99); POTASSIUM 3.8 mmol/L (3.5-5.1); SODIUM 137 mmol/L (136-145)
[2017-11-05 12:46] LABS: ALKALINE PHOSPHATASE 46 U/L (45-117)
== END | disposition home or self-care (01) ==
LOC: C.LAB 10:56
PROVIDERS: ATTEND Urology
DX: E27.9 Disorder of adrenal gland, unspecified (principal)

== ENCOUNTER → 2017-11-21 | Outpatient (CLI) | payer OTHER ==
[~2017-11-21] MED LIST changes: -B-CO1CAP17 PO; +B-COCAP2 PO; +GADAVIST IV PRN
--- NOTE | 2017-11-21 12:11 | DIAGNOSTIC IMAGING REPORT ---
CHEST 2 VIEWS ROUTINE CLINICAL HISTORY: 72 years-old Male presenting with E27.9 Adrenal mass, [id number]. TECHNIQUE: PA and lateral views of the chest were obtained. COMPARISON: 01/21/2017. FINDINGS: Cardiomediastinal silhouette normal. Mild elevation of the right hemidiaphragm, unchanged. Improved aeration at the left lung base. No focal infiltrate. No pleural effusion or pneumothorax. Degenerative changes of the thoracic spine. Extensive surgical clips noted in the upper abdomen, possibly in the retroperitoneum IMPRESSION: 1. No acute cardiopulmonary disease. Electronically signed by: Storm Blue M.D. 11/21/2017 12:09 PM Dictated Date/Time: 11/21/2017 12:08 PM
--- NOTE | 2017-11-21 12:57 | DIAGNOSTIC IMAGING REPORT ---
ADDENDUM Addendum: The MRI was reviewed with Dr. Solorzano on February 14, 2018. On review of the study, the right adrenal gland is identified. The right adrenal gland nodule described in the January 2017 CT scan is not visible on the MRI examination. As this nodule measured less than 1 cm, it is unclear whether this nodule has resolved, or is too small to visualize on MRI evaluation. Electronically signed by: Kapil Hagan M.D. 02/14/2018 2:52 PM Dictated Date/Time: 02/14/2018 2:50 PM ORIGINAL REPORT ABDOMEN COMBO CLINICAL HISTORY: Adrenal mass. Nephrectomy.. COMPARISON STUDY: CT evaluation 01/24/2017. TECHNIQUE: MRI of the abdomen is performed transverse T1 and T2-weighted sequences in the axial and coronal planes. Contrast enhanced sequences were acquired following the IV administration of 8.0 cc. FINDINGS: Lower chest: No pleural effusion is identified. The heart is normal in size. Liver: The liver is normal in size, contour, and signal intensity. No intrahepatic biliary ductal dilatation is seen. The hepatic veins and portal veins are patent. Gallbladder: Unremarkable. Spleen: Normal in size and signal intensity. Pancreas: Unremarkable. Adrenal glands: Operative removal of the right adrenal and right kidney Kidneys: Prior right nephrectomy. Several small microcysts left kidney unchanged. Bowel: Scattered colonic diverticuli. No evidence for diverticulitis. Previous findings of diverticulitis have resolved. Peritoneum: There is no abdominal ascites. Lymphadenopathy: None. Skeletal structures: Visualized skeletal structures times are normal marrow signal intensity. Enhancement: No abnormal postcontrast enhancement IMPRESSION: 1. Operative changes consistent with operative removal of the right adrenal and right kidney. 2. Scattered colonic diverticuli. 3. Otherwise negative study of the abdomen. No abnormal postcontrast enhancement The above report was generated using voice recognition software. It may contain grammatical, syntax or spelling errors. Electronically signed by: Vazquez Dailey M.D. 11/21/2017 12:56 PM Dictated Date/Time: 11/21/2017 12:48 PM
== END | disposition home or self-care (01) ==
LOC: C.MRI 11:19
PROVIDERS: ATTEND Urology
DX: E27.9 Disorder of adrenal gland, unspecified (principal); K57.30 Diverticulosis of large intestine without perforation or abscess without bleeding; Z90.5 Acquired absence of kidney

== ENCOUNTER → 2018-02-18 | Outpatient (CLI) | payer OTHER ==
[~2018-02-18] MED LIST changes: +B-CO1CAP17 PO; -B-COCAP2 PO; -GADAVIST IV PRN
[2018-02-18 14:11] LABS: HEMOGLOBIN A1C 5.2 % (4.5-5.6)
[2018-02-18 14:28] LABS: PROLACTIN 11.91 ng/mL
[2018-02-18 14:29] LABS: FOLLICLE STIMULAT HORMONE 11.51 IU/L; LUTEINIZING HORMONE 4.41 IU/L
[2018-02-18 14:32] LABS: BLOOD UREA NITROGEN 21 mg/dl (7-18); CREATININE 1.31 mg/dl (0.60-1.40)
== END | disposition home or self-care (01) ==
LOC: C.LABPBG 08:04
PROVIDERS: ATTEND Internal Medicine Endocrinology, Diabetes & Metabolism
DX: R73.03 Prediabetes (principal); E27.49 Other adrenocortical insufficiency; Z85.528 Personal history of other malignant neoplasm of kidney; N18.3 Chronic kidney disease, stage 3 (moderate)

== ENCOUNTER → 2018-02-21 | Outpatient (CLI) | payer OTHER ==
[~2018-02-21] MED LIST changes: +GADAVIST IV PRN
--- NOTE | 2018-02-21 14:44 | DIAGNOSTIC IMAGING REPORT ---
MRI OF THE BRAIN AND PITUITARY GLAND WITH AND WITHOUT CONTRAST CLINICAL HISTORY: Secondary adrenal insufficiency. COMPARISON STUDY: Head CT September 22, 2016. TECHNIQUE: Utilizing a 1.5 Kell magnet, multiplanar, multiecho imaging of the brain was performed pre and postcontrast ministration with thin cut imaging through the pituitary gland. Injection of 7 cc of Gadavist IV was uneventful. Post contrast imaging was performed utilizing dynamic enhancement. FINDINGS: There are no foci of restricted diffusion. No acute intracranial hemorrhage, midline shift or mass effect is present. Brain volume is normal for age with mild atrophy. Ventricular system is stable. Basilar cisterns are patent. There are no extra-axial collections. Flow-voids for the major intracranial vessels are present. There is no intracranial mass or pathologic enhancement. The size of the pituitary gland is normal. Infundibulum is midline. No pituitary gland lesion is identified on this examination. Orbits are unremarkable. Calvarium is intact. A few small white matter T2 hyperintense foci suggest mild small vessel disease. IMPRESSION: 1. No pituitary gland lesion identified. 2. No acute intracranial findings. 3. No intracranial mass or pathologic enhancement. Electronically signed by: Puneet Curtis M.D. 02/21/2018 2:42 PM Dictated Date/Time: 02/21/2018 2:35 PM
== END | disposition home or self-care (01) ==
LOC: C.MRI 12:41
PROVIDERS: ATTEND Internal Medicine Endocrinology, Diabetes & Metabolism
DX: E27.49 Other adrenocortical insufficiency (principal); E27.9 Disorder of adrenal gland, unspecified